=== PATIENT | female | born 1945 | race Caucasian/White ===

== ENCOUNTER 2019-11-14 00:06 | Day surgery (SDC) | payer MEDICARE, OTHER, SELFPAY ==
[2019-11-12 10:10] VITALS: BMI 24.2
[2019-11-14] MEDS: LACTATED RINGERS 1,000 ML 150 ML IV CONT (10:53)
[2019-11-14 10:56] VITALS: BP 149/87; PULSE 59; RESP 16; TEMP 37; O2SAT 99; BMI 23.4
--- NOTE | 2019-11-14 11:35 | PM.HPGS ---
History of Present Illness History of Present Illness Consent: Risks, benefits, and alternatives have been discussed and questions answered. Patient agrees to proceed with procedure. Chief complaint: Neoplasm Screening Narrative: Pao Diaz is a 74 year old female here for screening colonoscopy, last one 10 years ago. Review of Systems Constitutional: Constitutional: Denies headache(s) and Denies weakness Eyes: Eyes: Denies blurry vision ENT: Reports Normal hearing present, Denies headache(s) and Denies neck pain Cardiovascular: Cardiovascular: Denies chest pain and Denies dyspnea Respiratory: Respiratory: Denies dyspnea Gastrointestinal: Gastrointestinal: Reports no additional gastrointestinal complaints Genitourinary: Genitourinary: Denies dysuria Musculoskeletal: Musculoskeletal: Denies neck pain Integumentary/Breasts: Skin/Breast: Denies dry skin Neurologic: Reports Normal hearing present, Denies headache(s) and Denies weakness Psychiatric: Psychiatric: Denies anxiety Endocrine: Endocrine: Denies change in body appearance Hematologic/Lymphatic: Hematologic/Lymphatic: Denies easy bleeding Allergic/Immunologic: Allergic/Immunologic: Denies urticaria PMFSH Past Medical History Medical History (Updated 11/14/19 @ 11:35 by Roman Mathur MD) Anxiety Depression GERD (gastroesophageal reflux disease) Hyperlipidemia Hypertension Family History Family History (Updated 10/11/16 @ 11:23 by DOCTOR UNKNOWN) Mother Hypertension Family history of arthritis Social History Social History Smoking status: Current every day smoker Alcohol intake: current Meds Home Medications and Allergies Home Medications Medication Instructions Recorded Confirmed Type aspirin [Aspir-81] 81 mg PO DAILY 11/12/19 11/12/19 History atenolol 25 mg PO QAM 11/12/19 11/12/19 History escitalopram oxalate 20 mg PO QAM 11/12/19 11/12/19 History estradiol 0.5 mg PO QAM 11/12/19 11/12/19 History lorazepam 0.5 mg PO DIRECTED 11/12/19 11/12/19 History pantoprazole 40 mg PO DAILY 11/12/19 11/12/19 History simvastatin 10 mg PO DAILY 11/12/19 11/12/19 History telmisartan 20 mg PO QAM 11/12/19 11/12/19 History Allergies Allergy/AdvReac Type Severity Reaction Status Date / Time ampicillin AdvReac Unknown c-diff Verified 11/14/19 10:41 Vital Signs Vital Signs - 24 hr 11/14/19 10:56 Temperature 98.6 F Pulse Rate 59 L Respiratory Rate 16 Blood Pressure 149/87 H Pulse Oximetry 99 Exam Const: General: comfortable and no acute distress HENMT: General nose exam: Normal nares present Eyes: General: appearance normal, both eyes and all related structures Neck: Neck: no JVD Resp: Auscultation: clear to auscultation bilaterally Cardio: Rate: regular rate Rhythm: regular rhythm GI: Inspection: non-distended GI Palp: Yes Soft to palpation Skin: General skin exam: normal color Neuro: General: gait normal Speech: normal speech Extrem: General: normal to inspection Psych: Mental Status: mental status grossly normal
--- NOTE | 2019-11-14 11:36 | P.PNAN_ITS ---
Anes - Initial Pre Proc Eval Procedure: Operation Date: 11/14/19 11:30 Proposed Procedures p Screening Colonoscopy - Robbie Linda MD Date/Time: 11/14/19 11:36 Surgeon: Robbie Linda MD Pre Op Diagnosis: Neoplasm Screening Patient Data Age: 74 Gender: F Height: 5 ft 3 in Weight: 60 kg Last Vital Signs Temp 98.6 F 11/14/19 10:56 Pulse 59 L 11/14/19 10:56 Resp 16 11/14/19 10:56 BP 149/87 H 11/14/19 10:56 Pulse Ox 99 11/14/19 10:56 Allergies Allergy/AdvReac Type Severity Reaction Status Date / Time ampicillin AdvReac Unknown c-diff Verified 11/14/19 10:41 Home Medications Medication Instructions Recorded Confirmed Type aspirin [Aspir-81] 81 mg PO DAILY 11/12/19 11/12/19 History atenolol 25 mg PO QAM 11/12/19 11/12/19 History escitalopram oxalate 20 mg PO QAM 11/12/19 11/12/19 History estradiol 0.5 mg PO QAM 11/12/19 11/12/19 History lorazepam 0.5 mg PO DIRECTED 11/12/19 11/12/19 History pantoprazole 40 mg PO DAILY 11/12/19 11/12/19 History simvastatin 10 mg PO DAILY 11/12/19 11/12/19 History telmisartan 20 mg PO QAM 11/12/19 11/12/19 History Patient hx anesthesia problems: none Family hx anesthesia problems: none [facility] Past Medical History Medical History (Updated 11/14/19 @ 11:35 by Roman Mathur MD) Anxiety Depression GERD (gastroesophageal reflux disease) Hyperlipidemia Hypertension Family History Family History (Updated 10/11/16 @ 11:23 by DOCTOR UNKNOWN) Mother Hypertension Family history of arthritis Social History Social History Smoking status: Current every day smoker Alcohol intake: current Anes - Eval Final PreProcedure Day of Procedure 11/14/19 11:36 Patient weight: normal Heart: regular rate and rhythm Lungs: clear to auscultation Airway: Mallampati scale class II Neurological: alert and oriented Last oral intake: >/= 8 hours ASA classification: III Emergent: no Anesthetic plan: proceed Anesthesia type and monitoring: general GIVS and standard monitoring Informed Consent: The patient's anesthetic plan and its attendant risks and benefits were discussed with the patient/family/POA. Questions were solicited and answers provided to the satisfaction of the patient/family/POA.
[2019-11-14 12:37] VITALS: BP 100/62; PULSE 54; RESP 20; O2SAT 93
[2019-11-14 12:47] VITALS: BP 117/72; PULSE 50; RESP 15; O2SAT 96
[2019-11-14 12:57] VITALS: BP 127/82; PULSE 61; RESP 15; O2SAT 100
== END 2019-11-14 13:13 | disposition home or self-care (01) ==
PROVIDERS: PCP Internal Medicine; Visit Provider Internal Medicine Gastroenterology
PROC: 0DJD8ZZ Inspection of Lower Intestinal Tract, Via Natural or Artificial Opening Endoscopic (ICD-10-PCS; CPT 45378; principal; 2019-11-14 11:30)
DX: Z12.11 Encounter for screening for malignant neoplasm of colon (principal); K63.5 Polyp of colon; K64.8 Other hemorrhoids; I10 Essential (primary) hypertension; E78.5 Hyperlipidemia, unspecified; K21.9 Gastro-esophageal reflux disease without esophagitis; F41.8 Other specified anxiety disorders; Z79.82 Long term (current) use of aspirin; F17.210 Nicotine dependence, cigarettes, uncomplicated
CPT/HCPCS: 45385; 45381; 88305; J2704; J7120

== ENCOUNTER 2020-03-17 10:42 | Outpatient (CLI) | payer MEDICARE, SELFPAY ==
[2020-03-17 10:52] LABS: Basophils Absolute Auto 0.04 K/mm3 (0.00-0.10); Basophils Percent Auto 0.7 % (0.0-1.0); Eosinophils Absolute Auto 0.12 K/mm3 (0.02-0.50); Hematocrit 39.3 % (35.0-42.0); Hemoglobin 13.5 g/dL (11.7-13.8); Immature Granulocyte Absolute 0.01 K/mm3 (0.00-0.00); Immature Granulocyte Percent A 0.2 % (0.0-0.0); Lymphocytes Absolute Auto 1.25 K/mm3 (1.10-4.50); Lymphocytes Percent Auto 21.3 % (18.0-42.0); Mean Corpuscular HGB Conc 34.4 g/dL (32.0-36.0); Mean Corpuscular Hemoglobin 36.8 pg (27.0-31.0); Mean Corpuscular Volume 107.1 fL (78.0-102.0); Mean Platelet Volume 10.3 fl (9.2-11.8); Monocytes Absolute Auto 0.36 K/mm3 (0.10-0.90); Monocytes Percent Auto 6.1 % (2.0-11.0); Neutrophils Absolute Auto 4.1 K/mm3 (1.7-7.2); Neutrophils Percent Auto 69.7 % (50.0-70.0); Platelet Count Result 211 K/mm3 (150-420); Red Blood Count 3.67 M/mm3 (4.20-5.40); Red Cell Distribution Width 12.3 % (11.6-14.4); White Blood Count 5.9 K/mm3 (4.8-10.8)
[2020-03-17 10:57] LABS: Add Urine Microscopic? NO; Appearance Urine Clear (Clear); Bilirubin Urine Negative (Negative); Blood Urine Negative (Negative); Color Urine Yellow (Yellow); Glucose Urine UA Negative (Negative); Ketones Urine Negative (Negative); Leukocyte Esterase Ur Negative (Negative); Nitrate Urine Negative (Negative); Protein Urine Negative (Negative); Specific Grav Ur 1.015 (1.010-1.020); Urobilinogen Urine 0.2 mg/dL (0.2-1.0); pH Urine 7.5 (5.0-8.0)
[2020-03-17 11:44] LABS: Alanine Aminotransferase 58 U/L (14-59); Alkaline Phosphatase 103 U/L (46-116); Aspartate Amino Transferase 99 U/L (15-37); Bilirubin,Total 0.5 mg/dL (0.00-1.00); Blood Urea Nitrogen 10 mg/dL (7-18); Calcium 9.7 mg/dL (8.5-10.1); Carbon Dioxide 32 mmol/L (21-32); Chloride 100 mmol/L (98-108); Cholesterol 186 mg/dL (0-200); Estimated Glomerular Filt Rate > 60; GGT 392 U/L (5-55); Glucose 100 mg/dL (70-99); HDL Direct 65 mg/dL (40-60); LDL Cholesterol Calculated 99 mg/dL (<130); Osmolality Calculated 287 mOsm/kg (285-295); Sodium 139 mmol/L (136-145); Thyroid Stimulating Hormone 1.52 uIU/mL (0.36-3.74); Total Protein 7.4 g/dL (6.4-8.2); Triglycerides 111 mg/dL (0-150)
== END 2020-03-17 10:43 | disposition home or self-care (01) ==
LOC: CHSLAB 10:44
PROVIDERS: PCP Internal Medicine; Visit Provider Internal Medicine
DX: E78.5 Hyperlipidemia, unspecified (principal); I10 Essential (primary) hypertension; R94.5 Abnormal results of liver function studies
CPT/HCPCS: 36415; 80053; 80061; 81003; 82977; 84443; 85025

== ENCOUNTER 2020-04-14 12:32 | Outpatient (CLI) | payer MEDICARE, OTHER, SELFPAY ==
--- NOTE | ~2020-04-14 | MM_ITS ---
EXAMINATION: MM screening [facility] BI w cesia HISTORY: Screening mammogram, family history of breast cancer in her mother. TECHNIQUE: Craniocaudal and mediolateral oblique 3-D tomosynthesis images were obtained and synthetic 2-D images were generated. CAD analysis was submitted and interpreted. COMPARISON: 05/09/2018, 01/03/2017, 11/26/2015 BREAST PARENCHYMAL COMPOSITION: There are scattered areas of fibroglandular density. FINDINGS: There is a stable asymmetry in the anterior/middle third of the inner right breast on the c raniocaudal view, considered benign given the lack of interval telephone exchange operator multiple examinations. The re is no evidence of suspicious mass, calcification, or architectural distortion to suggest malignanc y in either breast. There has been no suspicious interval change. IMPRESSION: 1. No mammographic evidence of malignancy. 2. Recommend routine screening mammography in one year. BI-RADS Category 2: Benign finding(s). Reviewed, dictated and finalized at location A.
== END 2020-04-14 12:33 | disposition home or self-care (01) ==
LOC: CHSIMG 12:35
PROVIDERS: PCP Internal Medicine; Visit Provider Internal Medicine
DX: Z12.31 Encounter for screening mammogram for malignant neoplasm of breast (principal)
CPT/HCPCS: 77063; 77067

== ENCOUNTER 2020-08-06 06:14 | Outpatient (CLI) | payer MEDICARE, SELFPAY ==
[2020-08-07 15:20] LABS: SARS-CoV-2 RNA PCR Positive
== END 2020-08-06 06:15 | disposition home or self-care (01) ==
LOC: CHSLAB 06:16
PROVIDERS: PCP Internal Medicine; Visit Provider Internal Medicine
DX: U07.1 COVID-19 (principal)
CPT/HCPCS: 87635; C9803; U0003

== ENCOUNTER 2020-09-17 11:33 | Outpatient (CLI) | payer MEDICARE, SELFPAY ==
[2020-09-17 11:48] LABS: Add Urine Microscopic? NO; Appearance Urine Clear (Clear); Bilirubin Urine Negative (Negative); Blood Urine Negative (Negative); Color Urine Yellow (Yellow); Glucose Urine UA Negative (Negative); Ketones Urine Negative (Negative); Leukocyte Esterase Ur Negative (Negative); Nitrate Urine Negative (Negative); Protein Urine Negative (Negative); Specific Grav Ur <= 1.005 (1.010-1.020); Urobilinogen Urine 0.2 mg/dL (0.2-1.0); pH Urine 6.5 (5.0-8.0)
[2020-09-17 11:50] LABS: Basophils Absolute Auto 0.04 K/mm3 (0.00-0.10); Basophils Percent Auto 0.5 % (0.0-1.0); Eosinophils Absolute Auto 0.21 K/mm3 (0.02-0.50); Eosinophils Percent Auto 2.6 % (1.0-6.0); Hematocrit 37.3 % (35.0-42.0); Immature Granulocyte Absolute 0.02 K/mm3 (0.00-0.00); Immature Granulocyte Percent A 0.2 % (0.0-0.0); Lymphocytes Absolute Auto 1.81 K/mm3 (1.10-4.50); Lymphocytes Percent Auto 22.2 % (18.0-42.0); Mean Corpuscular HGB Conc 34.9 g/dL (32.0-36.0); Mean Corpuscular Hemoglobin 37.2 pg (27.0-31.0); Mean Corpuscular Volume 106.9 fL (78.0-102.0); Mean Platelet Volume 10.5 fl (9.2-11.8); Monocytes Absolute Auto 0.41 K/mm3 (0.10-0.90); Neutrophils Absolute Auto 5.7 K/mm3 (1.7-7.2); Neutrophils Percent Auto 69.5 % (50.0-70.0); Platelet Count Result 187 K/mm3 (150-420); Red Blood Count 3.49 M/mm3 (4.20-5.40); Red Cell Distribution Width 13.4 % (11.6-14.4); White Blood Count 8.2 K/mm3 (4.8-10.8)
[2020-09-17 12:29] LABS: Alanine Aminotransferase 22 U/L (14-59); Albumin Level 3.9 g/dL (3.4-5.0); Alkaline Phosphatase 71 U/L (46-116); Anion Gap 9 mmol/L (8-16); Aspartate Amino Transferase 37 U/L (15-37); Bilirubin,Total 0.7 mg/dL (0.00-1.00); Blood Urea Nitrogen 11 mg/dL (7-18); Calcium 8.1 mg/dL (8.5-10.1); Carbon Dioxide 27 mmol/L (21-32); Chloride 102 mmol/L (98-108); Cholesterol 177 mg/dL (0-200); Estimated Glomerular Filt Rate > 60; Glucose 86 mg/dL (70-99); HDL Direct 72 mg/dL (40-60); LDL Cholesterol Calculated 86 mg/dL (<130); Osmolality Calculated 284 mOsm/kg (285-295); Sodium 138 mmol/L (136-145); Total Protein 7.3 g/dL (6.4-8.2); Triglycerides 96 mg/dL (0-150)
== END 2020-09-17 11:34 | disposition home or self-care (01) ==
LOC: CHSLAB 11:35
PROVIDERS: PCP Internal Medicine; Visit Provider Internal Medicine
DX: E78.2 Mixed hyperlipidemia (principal); I10 Essential (primary) hypertension
CPT/HCPCS: 36415; 80053; 80061; 81003; 85025

== ENCOUNTER 2020-12-08 10:17 | Outpatient (CLI) | payer MEDICARE, OTHER, SELFPAY ==
--- NOTE | ~2020-12-08 | XR_ITS ---
EXAMINATION: XR knee RT 3V DATE: 12/08/2020 10:48 INDICATION: Right knee pain. TECHNIQUE: 3 views of right knee on 4 radiographs were obtained. COMPARISON: None. FINDINGS: Bone alignment is normal. No fracture. There is mild tricompartmental osteoarthritis. There is a small knee joint effusion. IMPRESSION: 1. Mild right knee osteoarthritis. 2. Small right knee joint effusion. Reviewed, dictated and finalized at location A. WRITER LETTERER OR PAINTER
[2020-12-08 10:34] LABS: Basophils Absolute Auto 0.03 K/mm3 (0.00-0.10); Basophils Percent Auto 0.5 % (0.0-1.0); Eosinophils Absolute Auto 0.15 K/mm3 (0.02-0.50); Eosinophils Percent Auto 2.3 % (1.0-6.0); Hematocrit 39.5 % (35.0-42.0); Hemoglobin 13.4 g/dL (11.7-13.8); Immature Granulocyte Absolute 0.02 K/mm3 (0.00-0.00); Immature Granulocyte Percent A 0.3 % (0.0-0.0); Lymphocytes Absolute Auto 0.91 K/mm3 (1.10-4.50); Lymphocytes Percent Auto 13.7 % (18.0-42.0); Mean Corpuscular HGB Conc 33.9 g/dL (32.0-36.0); Mean Corpuscular Hemoglobin 35.7 pg (27.0-31.0); Mean Corpuscular Volume 105.3 fL (78.0-102.0); Mean Platelet Volume 10.5 fl (9.2-11.8); Monocytes Absolute Auto 0.39 K/mm3 (0.10-0.90); Monocytes Percent Auto 5.9 % (2.0-11.0); Neutrophils Absolute Auto 5.2 K/mm3 (1.7-7.2); Neutrophils Percent Auto 77.3 % (50.0-70.0); Platelet Count Result 178 K/mm3 (150-420); Red Blood Count 3.75 M/mm3 (4.20-5.40); Red Cell Distribution Width 11.7 % (11.6-14.4); White Blood Count 6.7 K/mm3 (4.8-10.8)
[2020-12-08 11:48] LABS: Alanine Aminotransferase 43 U/L (14-59); Albumin Level 4.1 g/dL (3.4-5.0); Alkaline Phosphatase 87 U/L (46-116); Anion Gap 11 mmol/L (8-16); Aspartate Amino Transferase 84 U/L (15-37); Bilirubin,Total 0.6 mg/dL (0.00-1.00); Blood Urea Nitrogen 14 mg/dL (7-18); CRP 1.3 mg/dL (0.0-0.9); Calcium 9.3 mg/dL (8.5-10.1); Carbon Dioxide 27 mmol/L (21-32); Chloride 101 mmol/L (98-108); Estimated Glomerular Filt Rate > 60; Glucose 90 mg/dL (70-99); Osmolality Calculated 288 mOsm/kg (285-295); Potassium 4.5 mmol/L (3.5-5.1); Sodium 139 mmol/L (136-145); Total Protein 7.7 g/dL (6.4-8.2); Uric Acid 3.1 mg/dL (2.6-6.0)
== END 2020-12-08 10:18 | disposition home or self-care (01) ==
LOC: CHSLAB 10:20
PROVIDERS: PCP Internal Medicine; Visit Provider Internal Medicine
DX: R63.4 Abnormal weight loss (principal); M25.561 Pain in right knee
CPT/HCPCS: 36415; 73562; 80053; 84550; 85025; 86140

== ENCOUNTER 2020-12-16 09:24 | Outpatient (CLI) | payer MEDICARE, OTHER, SELFPAY ==
--- NOTE | ~2020-12-16 | CT_ITS ---
EXAMINATION: CT lung screening EXAM DATE: 12/16/2020 09:44 INDICATION: Personal history of tobacco dependence. TECHNIQUE: Spiral low dose CT of the chest without contrast. Axial, coronal and sagittal images were reviewed. The dose-length product (DLP) for this examination was 63.82 mGy-cm. The exposure was ta ilored according to patient size (auto mA exposure control), and iterative reconstruction (ASIR) was used as additional dose reduction technique. Comparison is made to prior examination from 03/11/2019. FINDINGS: The ascending aorta measures 5.0 cm in AP dimension (in 2019 measurement was 4.8 cm). The l ungs are clear. Tracheobronchial tree is patent. There is mild bronchiectasis. There is no mediasti nal, hilar or axillary lymphadenopathy. There are no pleural or pericardial effusions. There is n o pneumothorax. Heart normal in size. There is mild coronary arterial calcification, arterial scl erosis. Upper abdomen is unremarkable. There is mild to moderate thoracic spondylosis without osteo blastic or osteolytic lesions identified. Possible nondisplaced sternal fracture unchanged. IMPRESSION: 1. Lung-RADS category 1S, negative (<1%chance of malignancy); recommend continued LDCT screening in 1 year. 2. Mild interval increase in size of ascending aortic aneurysm, now 5.0 cm. Reviewed, dictated and finalized at location A. IMPRESSION: 1. Lung-RADS category 1S, negative (<1%chance of malignancy); recommend contin ued LDCT screening in 1 year. 2. Mild interval increase in size of ascending aortic aneurysm, now 5.0 cm.
== END 2020-12-16 09:25 | disposition home or self-care (01) ==
LOC: CHSIMG 09:27
PROVIDERS: PCP Internal Medicine; Visit Provider Internal Medicine
DX: Z12.2 Encounter for screening for malignant neoplasm of respiratory organs (principal); Z87.891 Personal history of nicotine dependence
CPT/HCPCS: 71271

== ENCOUNTER 2021-01-23 07:56 | Outpatient (CLI) | payer MEDICARE, OTHER, SELFPAY ==
[2021-01-23 09:49] LABS: SARS-CoV-2 RNA PCR Negative (Negative)
== END 2021-01-23 07:57 | disposition home or self-care (01) ==
PROVIDERS: PCP Internal Medicine; Visit Provider Internal Medicine Gastroenterology
DX: Z09 Encounter for follow-up examination after completed treatment for conditions other than malignant neoplasm (principal); Z86.16 Personal history of COVID-19
CPT/HCPCS: C9803; U0003; U0005

== ENCOUNTER 2021-01-26 02:49 | Day surgery (SDC) | payer MEDICARE, OTHER, SELFPAY ==
[2021-01-14 13:05] VITALS: BMI 21.8
[2021-01-26 10:25] VITALS: BP 114/72; PULSE 77; RESP 18; TEMP 36.9; O2SAT 99; BMI 21.4
[2021-01-26] MEDS: LACTATED RINGERS 1,000 ML 150 ML IV CONT (10:37)
--- NOTE | 2021-01-26 10:58 | P.PNAN_ITS ---
Anes - Initial Pre Proc Eval Procedure: Operation Date: 01/26/21 11:15 Proposed Procedures p Screening Colonoscopy - Robbie Linda MD Date/Time: 01/26/21 10:58 Surgeon: Robbie Linda MD Pre Op Diagnosis: hx of colon polyps Patient Data Age: 75 Gender: F Height: 5 ft 3 in Weight: 55 kg Last Vital Signs Temp 98.4 F 01/26/21 10:25 Pulse 77 01/26/21 10:25 Resp 18 01/26/21 10:25 BP 114/72 01/26/21 10:25 Pulse Ox 99 01/26/21 10:25 Allergies Allergy/AdvReac Type Severity Reaction Status Date / Time ampicillin AdvReac Unknown c-diff Verified 01/26/21 10:23 Home Medications Medication Instructions Recorded Confirmed Type aspirin [Aspir-81] 81 mg PO DAILY 11/12/19 01/14/21 History atenolol 25 mg PO QAM 11/12/19 01/14/21 History escitalopram oxalate 20 mg PO QAM 11/12/19 01/14/21 History estradiol 0.5 mg PO QAM 11/12/19 01/14/21 History lorazepam 0.5 mg PO DIRECTED 11/12/19 01/14/21 History pantoprazole 40 mg PO DAILY 11/12/19 01/14/21 History simvastatin 10 mg PO DAILY 11/12/19 01/14/21 History telmisartan 40 mg PO QAM 11/12/19 01/14/21 History Patient hx anesthesia problems: none Family hx anesthesia problems: none [facility] Past Medical History Medical History (Updated 11/14/19 @ 11:35 by Roman Mathur MD) Anxiety Depression GERD (gastroesophageal reflux disease) Hyperlipidemia Hypertension Family History Family History (Updated 10/11/16 @ 11:23 by DOCTOR UNKNOWN) Mother Hypertension Family history of arthritis Social History Social History Smoking status: Current every day smoker Tobacco type: cigarettes Alcohol intake: current Drinks per week: 3 Substance use: never Substance use type: does not use Living arrangements: with family Gender identity (if verbalized by the patient): Female Spiritual care concerns: No Anes - Eval Final PreProcedure Day of Procedure 01/26/21 10:58 Patient weight: normal Heart: regular rate and rhythm Lungs: clear to auscultation Airway: Mallampati scale Neurological: alert and oriented Last oral intake: >/= 8 hours ASA classification: III Emergent: no Anesthetic plan: proceed Anesthesia type and monitoring: general GIVS and standard monitoring Informed Consent: The patient's anesthetic plan and its attendant risks and benefits were discussed with the patient/family/POA. Questions were solicited and answers provided to the satisfaction of the patient/family/POA.
--- NOTE | 2021-01-26 11:01 | PM.HPGS ---
History of Present Illness History of Present Illness Consent: Risks, benefits, and alternatives have been discussed and questions answered. Patient agrees to proceed with procedure. Chief complaint: hx of colon polyps Narrative: Pao Diaz is a 75 year old female with large piece-meal polypectomy 1 year ago, here for colonoscopy Review of Systems Constitutional: Constitutional: Denies headache(s) and Denies weakness Eyes: Eyes: Denies blurry vision ENT: Reports Normal hearing present, Denies headache(s) and Denies neck pain Cardiovascular: Cardiovascular: Denies chest pain and Denies dyspnea Respiratory: Respiratory: Denies dyspnea Gastrointestinal: Gastrointestinal: Reports no additional gastrointestinal complaints Genitourinary: Genitourinary: Denies dysuria Musculoskeletal: Musculoskeletal: Denies neck pain Integumentary/Breasts: Skin/Breast: Denies dry skin Neurologic: Reports Normal hearing present, Denies headache(s) and Denies weakness Psychiatric: Psychiatric: Denies anxiety Endocrine: Endocrine: Denies change in body appearance Hematologic/Lymphatic: Hematologic/Lymphatic: Denies easy bleeding Allergic/Immunologic: Allergic/Immunologic: Denies urticaria PMFSH Past Medical History Medical History (Updated 01/26/21 @ 11:01 by Robbie Linda MD) Adenomatous colon polyp Anxiety Depression GERD (gastroesophageal reflux disease) Hyperlipidemia Hypertension Family History Family History (Updated 10/11/16 @ 11:23 by DOCTOR UNKNOWN) Mother Hypertension Family history of arthritis Social History Social History Smoking status: Current every day smoker Tobacco type: cigarettes Alcohol intake: current Drinks per week: 3 Substance use: never Substance use type: does not use Living arrangements: with family Gender identity (if verbalized by the patient): Female Spiritual care concerns: No Meds Home Medications and Allergies Home Medications Medication Instructions Recorded Confirmed Type aspirin [Aspir-81] 81 mg PO DAILY 11/12/19 01/14/21 History atenolol 25 mg PO QAM 11/12/19 01/14/21 History escitalopram oxalate 20 mg PO QAM 11/12/19 01/14/21 History estradiol 0.5 mg PO QAM 11/12/19 01/14/21 History lorazepam 0.5 mg PO DIRECTED 11/12/19 01/14/21 History pantoprazole 40 mg PO DAILY 11/12/19 01/14/21 History simvastatin 10 mg PO DAILY 11/12/19 01/14/21 History telmisartan 40 mg PO QAM 11/12/19 01/14/21 History Allergies Allergy/AdvReac Type Severity Reaction Status Date / Time ampicillin AdvReac Unknown c-diff Verified 01/26/21 10:23 Vital Signs Vital Signs - 24 hr 01/26/21 10:25 Temperature 98.4 F Pulse Rate 77 Respiratory Rate 18 Blood Pressure 114/72 Pulse Oximetry 99 Exam Const: General: comfortable and no acute distress HENMT: General nose exam: Normal nares present Eyes: General: appearance normal, both eyes and all related structures Neck: Neck: no JVD Resp: Auscultation: clear to auscultation bilaterally Cardio: Rate: regular rate Rhythm: regular rhythm GI: Inspection: non-distended GI Palp: Yes Soft to palpation Skin: General skin exam: normal color Neuro: General: gait normal Speech: normal speech Extrem: General: normal to inspection Psych: Mental Status: mental status grossly normal Assessment and Plan Assessment and plan (1) Adenomatous colon polyp: Code(s): D12.6 - Benign neoplasm of colon, unspecified Status: Acute Assessment and Plan: colonoscopy
[2021-01-26 11:29] VITALS: BP 100/66; PULSE 67; RESP 21; O2SAT 100
[2021-01-26 11:39] VITALS: BP 124/79; PULSE 59; RESP 20; O2SAT 100
[2021-01-26 11:49] VITALS: BP 115/70; PULSE 61; RESP 21; O2SAT 100
== END 2021-01-26 12:13 | disposition home or self-care (01) ==
PROVIDERS: PCP Internal Medicine; Visit Provider Internal Medicine Gastroenterology
PROC: 0DJD8ZZ Inspection of Lower Intestinal Tract, Via Natural or Artificial Opening Endoscopic (ICD-10-PCS; CPT 45378; principal; 2021-01-26 11:15)
DX: Z09 Encounter for follow-up examination after completed treatment for conditions other than malignant neoplasm (principal); Z86.010 Personal history of colon polyps; K21.9 Gastro-esophageal reflux disease without esophagitis; E78.5 Hyperlipidemia, unspecified; I10 Essential (primary) hypertension; F17.210 Nicotine dependence, cigarettes, uncomplicated; F41.9 Anxiety disorder, unspecified; F32.9 Major depressive disorder, single episode, unspecified
CPT/HCPCS: 45378; J2704; J7120

== ENCOUNTER 2021-03-10 11:12 | Outpatient (CLI) | payer MEDICARE, OTHER, SELFPAY ==
[2021-03-10 11:35] LABS: Basophils Absolute Auto 0.04 K/mm3 (0.00-0.10); Basophils Percent Auto 0.6 % (0.0-1.0); Eosinophils Absolute Auto 0.13 K/mm3 (0.02-0.50); Eosinophils Percent Auto 1.9 % (1.0-6.0); Hematocrit 39.1 % (35.0-42.0); Hemoglobin 13.5 g/dL (11.7-13.8); Immature Granulocyte Absolute 0.01 K/mm3 (0.00-0.00); Immature Granulocyte Percent A 0.1 % (0.0-0.0); Lymphocytes Absolute Auto 1.65 K/mm3 (1.10-4.50); Lymphocytes Percent Auto 24.2 % (18.0-42.0); Mean Corpuscular HGB Conc 34.5 g/dL (32.0-36.0); Mean Corpuscular Hemoglobin 36.8 pg (27.0-31.0); Mean Corpuscular Volume 106.5 fL (78.0-102.0); Mean Platelet Volume 10.1 fl (9.2-11.8); Monocytes Percent Auto 5.9 % (2.0-11.0); Neutrophils Absolute Auto 4.6 K/mm3 (1.7-7.2); Neutrophils Percent Auto 67.3 % (50.0-70.0); Platelet Count Result 215 K/mm3 (150-420); Red Blood Count 3.67 M/mm3 (4.20-5.40); White Blood Count 6.8 K/mm3 (4.8-10.8)
[2021-03-10 12:25] LABS: Alanine Aminotransferase 39 U/L (14-59); Albumin Level 3.8 g/dL (3.4-5.0); Alkaline Phosphatase 70 U/L (46-116); Anion Gap 10 mmol/L (8-16); Aspartate Amino Transferase 51 U/L (15-37); Bilirubin,Total 0.5 mg/dL (0.00-1.00); Blood Urea Nitrogen 15 mg/dL (7-18); Calcium 8.9 mg/dL (8.5-10.1); Carbon Dioxide 30 mmol/L (21-32); Chloride 101 mmol/L (98-108); Estimated Glomerular Filt Rate 60; Glucose 85 mg/dL (70-99); Osmolality Calculated 291 mOsm/kg (285-295); Potassium 4.3 mmol/L (3.5-5.1); Sodium 141 mmol/L (136-145)
[2021-03-12 22:01] LABS: Hepatitis A Antibody IgM Nonreactive; Hepatitis B Core Antibody Nonreactive (Nonreactive); Hepatitis B Surface Antigen Nonreactive (Nonreactive); Hepatitis C Signal to Cutoff 0.01 ratio (<1.00); Hepatitis C Virus Antibody Nonreactive (Nonreactive)
== END 2021-03-10 11:13 | disposition home or self-care (01) ==
PROVIDERS: PCP Internal Medicine; Visit Provider Internal Medicine
DX: R94.5 Abnormal results of liver function studies (principal)
CPT/HCPCS: 36415; 80053; 80074; 85025

== ENCOUNTER 2021-04-19 08:52 | Outpatient (CLI) | payer MEDICARE, OTHER, SELFPAY ==
--- NOTE | ~2021-04-19 | MM_ITS ---
EXAMINATION: MM screening [facility] BI w cesia HISTORY: Screening TECHNIQUE: Craniocaudal and mediolateral oblique 3-D tomosynthesis images were obtained and synthetic 2-D images were generated. CAD analysis was submitted and interpreted. COMPARISON: Comparison to multiple prior studies sequentially, with oldest reviewed study dated 10/29. BREAST PARENCHYMAL COMPOSITION: There are scattered areas of fibroglandular density. FINDINGS: There is no evidence of suspicious mass, calcification, or architectural distortion to sugg est malignancy in either breast. There has been no suspicious interval change. IMPRESSION: 1. No mammographic evidence of malignancy. 2. Recommend routine screening mammography in one year. BI-RADS Category 1: Negative Reviewed, dictated and finalized at location A.
== END 2021-04-19 08:53 | disposition home or self-care (01) ==
LOC: CHSIMG 08:53
PROVIDERS: PCP Internal Medicine; Visit Provider Internal Medicine
DX: Z12.31 Encounter for screening mammogram for malignant neoplasm of breast (principal)
CPT/HCPCS: 77063; 77067

== ENCOUNTER 2021-05-07 01:48 | Day surgery (SDC) | payer MEDICARE, OTHER, SELFPAY ==
[2021-04-23 14:14] VITALS: BMI 21.4
--- NOTE | 2021-05-07 08:29 | WPDANESEPPF ---
Anes - Initial Pre Proc Eval Procedure: Operation Date: 05/07/21 10:30 Proposed Procedures p Esophagogastroduodenoscopy - Robbie Linda MD Date/Time: 05/07/21 08:29 Surgeon: Robbie Linda MD Pre Op Diagnosis: GERD Patient Data Age: 75 Gender: F Height: 1.6 m Weight: 55 kg Allergies Allergy/AdvReac Type Severity Reaction Status Date / Time ampicillin AdvReac Unknown c-diff Verified 05/07/21 09:35 Home Medications Medication Instructions Recorded Confirmed Type aspirin [Aspir-81] 81 mg PO DAILY 11/12/19 04/23/21 History atenolol 25 mg PO QAM 11/12/19 04/23/21 History estradiol 0.5 mg PO QAM 11/12/19 04/23/21 History lorazepam 0.5 mg PO DIRECTED 11/12/19 04/23/21 History pantoprazole 40 mg PO DAILY 11/12/19 04/23/21 History simvastatin 10 mg PO DAILY 11/12/19 04/23/21 History telmisartan 40 mg PO QAM 11/12/19 04/23/21 History Patient hx anesthesia problems: none Family hx anesthesia problems: none PMFSH Past Medical History Medical History (Updated 05/07/21 @ 08:30 by Mack Coates MD) Adenomatous colon polyp Anxiety Aortic aneurysm ascending aorta 5.0 cm 11/2020 Depression GERD (gastroesophageal reflux disease) Hyperlipidemia Hypertension Family History Family History (Updated 10/11/16 @ 11:23 by DOCTOR UNKNOWN) Mother Hypertension Family history of arthritis Social History Social History Years smoked: 14 Smoking status: Current every day smoker Tobacco type: cigarettes Alcohol intake: current Drinks per week: 3 Alcohol use details: WINE Substance use: never Substance use type: does not use Living arrangements: with family Gender identity (if verbalized by the patient): Female Spiritual care concerns: No Anes - Eval Final PreProcedure Day of Procedure 05/07/21 08:29 Patient weight: normal Heart: regular rate and rhythm Lungs: clear to auscultation and normal air movement Airway: Mallampati scale class II Neurological: alert and oriented Last oral intake: >/= 8 hours ASA classification: IV Emergent: no Anesthetic plan: proceed Anesthesia type and monitoring: general GIVS Informed Consent: The patient's anesthetic plan and its attendant risks and benefits were discussed with the patient/family/POA. Questions were solicited and answers provided to the satisfaction of the patient/family/POA.
[2021-05-07 09:37] VITALS: BP 161/96; PULSE 76; RESP 16; TEMP 36.5; O2SAT 98; BMI 21.7
[2021-05-07] MEDS: LACTATED RINGERS 1,000 ML 150 ML IV CONT (09:49)
--- NOTE | 2021-05-07 10:31 | PM.HPGS ---
History of Present Illness History of Present Illness Consent: Risks, benefits, and alternatives have been discussed and questions answered. Patient agrees to proceed with procedure. Chief complaint: GERD Narrative: Pao Diaz is a 75 year old female with epigastric pain and weight loss, using ppi recently, never had EGD. Recent screening colonoscopy, also CT chest (h/o smoking) Review of Systems Constitutional: Constitutional: Denies headache(s) and Denies weakness Eyes: Eyes: Denies blurry vision ENT: Reports Normal hearing present, Denies headache(s) and Denies neck pain Cardiovascular: Cardiovascular: Denies chest pain and Denies dyspnea Respiratory: Respiratory: Denies dyspnea Gastrointestinal: Gastrointestinal: Reports no additional gastrointestinal complaints Genitourinary: Genitourinary: Denies dysuria Musculoskeletal: Musculoskeletal: Denies neck pain Integumentary/Breasts: Skin/Breast: Denies dry skin Neurologic: Reports Normal hearing present, Denies headache(s) and Denies weakness Psychiatric: Psychiatric: Denies anxiety Endocrine: Endocrine: Denies change in body appearance Hematologic/Lymphatic: Hematologic/Lymphatic: Denies easy bleeding Allergic/Immunologic: Allergic/Immunologic: Denies urticaria PMFSH Past Medical History Medical History (Updated 05/07/21 @ 10:33 by Robbie Linda MD) Adenomatous colon polyp Anxiety Aortic aneurysm ascending aorta 5.0 cm 11/2020 Depression Epigastric pain GERD (gastroesophageal reflux disease) Hyperlipidemia Hypertension Weight loss Family History Family History (Updated 10/11/16 @ 11:23 by DOCTOR UNKNOWN) Mother Hypertension Family history of arthritis Social History Social History Years smoked: 14 Smoking status: Current every day smoker Tobacco type: cigarettes Alcohol intake: current Drinks per week: 3 Alcohol use details: WINE Substance use: never Substance use type: does not use Living arrangements: with family Gender identity (if verbalized by the patient): Female Spiritual care concerns: No Meds Home Medications and Allergies Home Medications Medication Instructions Recorded Confirmed Type aspirin [Aspir-81] 81 mg PO DAILY 11/12/19 04/23/21 History atenolol 25 mg PO QAM 11/12/19 04/23/21 History estradiol 0.5 mg PO QAM 11/12/19 04/23/21 History lorazepam 0.5 mg PO DIRECTED 11/12/19 04/23/21 History pantoprazole 40 mg PO DAILY 11/12/19 04/23/21 History simvastatin 10 mg PO DAILY 11/12/19 04/23/21 History telmisartan 40 mg PO QAM 11/12/19 04/23/21 History Allergies Allergy/AdvReac Type Severity Reaction Status Date / Time ampicillin AdvReac Unknown c-diff Verified 05/07/21 09:35 Vital Signs Vital Signs - 24 hr 05/07/21 09:37 Temperature 97.7 F Pulse Rate 76 Respiratory Rate 16 Blood Pressure 161/96 H Pulse Oximetry 98 Exam Const: General: comfortable and no acute distress HENMT: General nose exam: Normal nares present Eyes: General: appearance normal, both eyes and all related structures Neck: Neck: no JVD Resp: Auscultation: clear to auscultation bilaterally Cardio: Rate: regular rate Rhythm: regular rhythm GI: Inspection: non-distended GI Palp: Yes Soft to palpation Skin: General skin exam: normal color Neuro: General: gait normal Speech: normal speech Extrem: General: normal to inspection Psych: Mental Status: mental status grossly normal Assessment and Plan Assessment and plan (1) Epigastric pain: Code(s): R10.13 - Epigastric pain Status: Acute Assessment and Plan: egd with bx (2) Weight loss: Code(s): R63.4 - Abnormal weight loss Status: Acute
[2021-05-07] MEDS: BENZOCAINE (*SP) 60 ML SPRAY CAN (HURRICAINE) 1 SPRAY MUCOUS MEM (10:34)
[2021-05-07 10:47] VITALS: BP 122/80; PULSE 70; RESP 15; O2SAT 96
[2021-05-07 10:57] VITALS: BP 144/90; PULSE 61; RESP 16; O2SAT 95
[2021-05-07 11:07] VITALS: BP 159/97; PULSE 60; RESP 16; O2SAT 96
== END 2021-05-07 11:23 | disposition home or self-care (01) ==
PROVIDERS: PCP Internal Medicine; Visit Provider Internal Medicine Gastroenterology
PROC: 0DJ08ZZ Inspection of Upper Intestinal Tract, Via Natural or Artificial Opening Endoscopic (ICD-10-PCS; CPT 43235; principal; 2021-05-07 10:30)
DX: R10.13 Epigastric pain (principal); R63.4 Abnormal weight loss; K21.9 Gastro-esophageal reflux disease without esophagitis; I71.4 Abdominal aortic aneurysm, without rupture; F41.8 Other specified anxiety disorders; E78.5 Hyperlipidemia, unspecified; F17.210 Nicotine dependence, cigarettes, uncomplicated; Z79.82 Long term (current) use of aspirin; K29.50 Unspecified chronic gastritis without bleeding; I10 Essential (primary) hypertension
CPT/HCPCS: 43239; 88305; J2704; J7120

== ENCOUNTER 2021-05-19 09:47 | Outpatient (CLI) | payer MEDICARE, OTHER, SELFPAY ==
--- NOTE | ~2021-05-19 | US_ITS ---
US abdomen complete EXAMINATION: US Abdomen Complete INDICATION: Abnormal weight loss. PROCEDURE: Realtime High Resolution abdomen ultrasound. COMPARISON: No prior studies for comparison FINDINGS: There are small gallbladder polyps. No definite gallstones. Common bile duct measures 7 mm . Liver echotexture within normal limits without focal mass. Pancreas within normal limits. Pancreati c tail is obscured by bowel gas. Spleen is unremarkeable. Renal echotexture is within normal limits bilaterally without hydronephrosis, contour deforming mass or renal stone. There is a 12 mm right cori al cyst. Right kidney measures 9.9 cm. Left kidney measures 9.5 cm. Visualized aspects of the aorta and IVC are within normal limits. Portal vein is patent. No sonograph ic Johnson's sign indicated by the technologist. IMPRESSION: 1: Gallbladder polyps. Reviewed, dictated and finalized at location A. IMPRESSION: 1: Gallbladder polyps.
== END 2021-05-19 09:48 | disposition home or self-care (01) ==
LOC: CHSIMG 09:49
PROVIDERS: PCP Internal Medicine; Visit Provider Internal Medicine Gastroenterology
DX: R63.4 Abnormal weight loss (principal); R10.13 Epigastric pain
CPT/HCPCS: 76700

== ENCOUNTER 2021-07-12 10:48 | Outpatient (CLI) | payer MEDICARE, OTHER, SELFPAY ==
--- NOTE | ~2021-07-12 | DEXA_ITS ---
Bone Density Report Name: Pao Diaz Age: 75 Sex: Female Ethnicity: White Date of : 1945 Indication: postmenopausal; screening for osteoporosis; hysterectomy; Referring Provider: Jovanni Villanueva Study: Bone densitometry was performed. Exam Date: July 12, 2021 Accession number: [id number] Bone Density: Region BMD T-score Z-score Classification AP Spine(L1-L4) 1.298 2.3 4.6 Normal Femoral Neck (Left) 0.783 -0.6 1.4 Normal Total Hip (Left) 0.954 0.1 1.8 Normal Femoral Neck (Right) 0.784 -0.6 1.4 Normal Total Hip (Right) 0.981 0.3 2.0 Normal Total Hip Mean 0.968 0.2 1.9 Normal World Health Organization criteria for BMD impression classify patients as: Normal (T-score at or above -1.0), Osteopenia (T-score between -1.0 and -2.5), or Osteoporosis (T-score at or below -2.5). 10-year Fracture Risk: FRAX not reported because: All T-scores for Spine Total, Hip Total, Femoral Neck at or above -1.0 Previous Exams: Region Exam Age BMD T-score BMD Change BMD Change Date g/cm2 vs Baseline vs Previous AP Spine(L1-L4) 07/12/2021 75 1.298 2.3 0.131(11.2%)# 0.131(11.2%)# 10/05/2009 63 1.167 1.1 Total Hip(Left) 07/12/2021 75 0.954 0.1 -0.024(-2.4%)# -0.024(-2.4%)# 10/05/2009 63 0.978 0.3 Total Hip(Right) 07/12/2021 75 0.981 0.3 -0.027(-2.7%)# -0.027(-2.7%)# 10/05/2009 63 1.008 0.5 *Denotes significance at 95% confidence level, LSC for AP Spine = 0.022 g/cm2, LSC for Total Hip = 0.027 g/cm2 # Denotes dissimilar scan types or analysis methods Clinical Information Provided by Patient: Smokes Has used the following medications: Vitamin D Has the following medical conditions: Hysterectomy Patient maximum height was 63 No regular weight bearing exercise Drinks caffeinated beverages Onset of menses at age 14 Number of children 0 Impression: The patient has normal bone mass. The patient has risk factors, including: smoking. No significant bone loss was observed. Discussion: BONE DENSITY IS ABOVE THE MINIMUM DESIRABLE LEVEL AT ALL SKELETAL SITES TESTED. This patient?s bone mineral density is above the minimum desirable level (T-score -1.0 or better) at all sites measured. The patient should follow a healthful lifestyle (good nutrition with adequate calcium and vitamin D, and appropriate weight-bearing exercise). Follow-Up: Consider repeating this study in 5 years or sooner if there is some new cli
== END 2021-07-12 10:49 | disposition home or self-care (01) ==
LOC: CHSIMG 10:49
PROVIDERS: PCP Internal Medicine; Visit Provider Internal Medicine
DX: M81.0 Age-related osteoporosis without current pathological fracture (principal)
CPT/HCPCS: 77080

== ENCOUNTER 2021-09-08 10:59 | Outpatient (CLI) | payer MEDICARE, SELFPAY ==
[2021-09-08 11:20] LABS: Basophils Absolute Auto 0.05 K/mm3 (0.00-0.10); Basophils Percent Auto 0.7 % (0.0-1.0); Eosinophils Absolute Auto 0.07 K/mm3 (0.02-0.50); Eosinophils Percent Auto 0.9 % (1.0-6.0); Hematocrit 41.2 % (35.0-42.0); Hemoglobin 13.9 g/dL (11.7-13.8); Immature Granulocyte Absolute 0.03 K/mm3 (0.00-0.00); Immature Granulocyte Percent A 0.4 % (0.0-0.0); Lymphocytes Percent Auto 26.2 % (18.0-42.0); Mean Corpuscular HGB Conc 33.7 g/dL (32.0-36.0); Mean Corpuscular Hemoglobin 35.9 pg (27.0-31.0); Mean Corpuscular Volume 106.5 fL (78.0-102.0); Mean Platelet Volume 10.2 fl (9.2-11.8); Monocytes Absolute Auto 0.43 K/mm3 (0.10-0.90); Monocytes Percent Auto 5.6 % (2.0-11.0); Neutrophils Percent Auto 66.2 % (50.0-70.0); Platelet Count Result 224 K/mm3 (150-420); Red Blood Count 3.87 M/mm3 (4.20-5.40); Red Cell Distribution Width 12.3 % (11.6-14.4); White Blood Count 7.6 K/mm3 (4.8-10.8)
[2021-09-08 11:24] LABS: Add Urine Microscopic? NO; Appearance Urine Clear (Clear); Bilirubin Urine Negative (Negative); Blood Urine Negative (Negative); Color Urine Light Yellow (Yellow); Glucose Urine UA Negative (Negative); Ketones Urine Negative (Negative); Leukocyte Esterase Ur Negative (Negative); Nitrate Urine Negative (Negative); Protein Urine Negative (Negative); Specific Grav Ur 1.025 (1.010-1.020); Urobilinogen Urine 0.2 mg/dL (0.2-1.0)
[2021-09-08 12:02] LABS: Alanine Aminotransferase 29 U/L (14-59); Albumin Level 3.8 g/dL (3.4-5.0); Alkaline Phosphatase 67 U/L (46-116); Anion Gap 11 mmol/L (8-16); Aspartate Amino Transferase 39 U/L (15-37); Bilirubin,Total 0.6 mg/dL (0.00-1.00); Blood Urea Nitrogen 11 mg/dL (7-18); Calcium 9.5 mg/dL (8.5-10.1); Carbon Dioxide 28 mmol/L (21-32); Chloride 105 mmol/L (98-108); Cholesterol 189 mg/dL (0-200); Estimated Glomerular Filt Rate > 60; Glucose 98 mg/dL (70-99); HDL Direct 82 mg/dL (40-60); LDL Cholesterol Calculated 91 mg/dL (<130); Osmolality Calculated 297 mOsm/kg (285-295); Potassium 4.1 mmol/L (3.5-5.1); Sodium 144 mmol/L (136-145); Thyroid Stimulating Hormone 0.94 uIU/mL (0.36-3.74); Total Protein 7.3 g/dL (6.4-8.2); Triglycerides 80 mg/dL (0-150)
== END 2021-09-08 11:00 | disposition home or self-care (01) ==
LOC: CHSLAB 11:01
PROVIDERS: PCP Internal Medicine; Visit Provider Internal Medicine
DX: E78.5 Hyperlipidemia, unspecified (principal); I10 Essential (primary) hypertension
CPT/HCPCS: 36415; 80053; 80061; 81003; 84443; 85025

== ENCOUNTER 2022-03-16 10:45 | Outpatient (CLI) | payer MEDICARE, SELFPAY ==
[2022-03-16 11:01] LABS: Basophils Absolute Auto 0.06 K/mm3 (0.00-0.10); Basophils Percent Auto 0.8 % (0.0-1.0); Eosinophils Absolute Auto 0.19 K/mm3 (0.02-0.50); Eosinophils Percent Auto 2.4 % (1.0-6.0); Hematocrit 40.9 % (35.0-42.0); Hemoglobin 13.8 g/dL (11.7-13.8); Immature Granulocyte Absolute 0.02 K/mm3 (0.00-0.00); Immature Granulocyte Percent A 0.3 % (0.0-0.0); Mean Corpuscular HGB Conc 33.7 g/dL (32.0-36.0); Mean Corpuscular Hemoglobin 35.9 pg (27.0-31.0); Mean Corpuscular Volume 106.5 fL (78.0-102.0); Mean Platelet Volume 10.3 fl (9.2-11.8); Monocytes Absolute Auto 0.51 K/mm3 (0.10-0.90); Monocytes Percent Auto 6.5 % (2.0-11.0); Neutrophils Absolute Auto 5.2 K/mm3 (1.7-7.2); Platelet Count Result 223 K/mm3 (150-420); Red Blood Count 3.84 M/mm3 (4.20-5.40); Red Cell Distribution Width 12.4 % (11.6-14.4); White Blood Count 7.8 K/mm3 (4.8-10.8)
[2022-03-16 11:02] LABS: Add Urine Microscopic? NO; Appearance Urine Clear (Clear); Bilirubin Urine Negative (Negative); Blood Urine Negative (Negative); Color Urine Light Yellow (Yellow); Glucose Urine UA Negative (Negative); Ketones Urine Negative (Negative); Leukocyte Esterase Ur Negative (Negative); Nitrate Urine Negative (Negative); Protein Urine Negative (Negative); Specific Grav Ur <= 1.005 (1.010-1.020); Urobilinogen Urine 0.2 mg/dL (0.2-1.0)
[2022-03-16 11:17] LABS: Alanine Aminotransferase 20 U/L (14-59); Albumin Level 3.8 g/dL (3.4-5.0); Alkaline Phosphatase 68 U/L (46-116); Anion Gap 5 mmol/L (8-16); Aspartate Amino Transferase 29 U/L (15-37); Bilirubin,Total 0.6 mg/dL (0.00-1.00); Blood Urea Nitrogen 14 mg/dL (7-18); Calcium 9.1 mg/dL (8.5-10.1); Carbon Dioxide 30 mmol/L (21-32); Chloride 103 mmol/L (98-108); Cholesterol 208 mg/dL (0-200); Estimated Glomerular Filt Rate 49; Glucose 90 mg/dL (70-99); HDL Direct 87 mg/dL (40-60); LDL Cholesterol Calculated 92 mg/dL (<130); Osmolality Calculated 286 mOsm/kg (285-295); Potassium 4.3 mmol/L (3.5-5.1); Sodium 138 mmol/L (136-145); Total Protein 7.6 g/dL (6.4-8.2); Triglycerides 147 mg/dL (0-150)
== END 2022-03-16 10:46 | disposition home or self-care (01) ==
LOC: CHSLAB 10:49
PROVIDERS: PCP Internal Medicine; Visit Provider Internal Medicine
DX: E87.5 Hyperkalemia (principal); I10 Essential (primary) hypertension
CPT/HCPCS: 36415; 80053; 80061; 81003; 85025

== ENCOUNTER 2022-04-21 11:58 | Outpatient (CLI) | payer MEDICARE, SELFPAY ==
--- NOTE | ~2022-04-21 | MM_ITS ---
EXAMINATION: MM screening tj BI w cesia HISTORY: Screening TECHNIQUE: Craniocaudal and mediolateral oblique 3-D tomosynthesis images were obtained and synthetic 2-D images were generated. CAD analysis was submitted and interpreted. COMPARISON: Comparison to multiple prior studies sequentially, with oldest reviewed study dated 11/2014. BREAST PARENCHYMAL COMPOSITION: The breasts are heterogeneously dense, which may obscure small masses . FINDINGS: There is no evidence of suspicious mass, calcification, or architectural distortion to sugg est malignancy in either breast. There has been no suspicious interval change. IMPRESSION: 1. No mammographic evidence of malignancy. 2. Recommend routine screening mammography in one year. BI-RADS Category 1: Negative Reviewed, dictated and finalized at location A.
== END 2022-04-21 11:59 | disposition home or self-care (01) ==
LOC: CHSIMG 12:00
PROVIDERS: PCP Internal Medicine; Visit Provider Internal Medicine
DX: Z12.31 Encounter for screening mammogram for malignant neoplasm of breast (principal)
CPT/HCPCS: 77063; 77067

== ENCOUNTER 2022-10-08 07:22 | Outpatient (CLI) | payer MEDICARE, SELFPAY ==
[2022-10-08 07:36] LABS: Basophils Absolute Auto 0.05 K/mm3 (0.00-0.10); Basophils Percent Auto 0.9 % (0.0-1.0); Eosinophils Absolute Auto 0.53 K/mm3 (0.02-0.50); Eosinophils Percent Auto 9.4 % (1.0-6.0); Hemoglobin 12.9 g/dL (11.7-13.8); Immature Granulocyte Absolute 0.01 K/mm3 (0.00-0.00); Immature Granulocyte Percent A 0.2 % (0.0-0.0); Lymphocytes Absolute Auto 2.12 K/mm3 (1.10-4.50); Lymphocytes Percent Auto 37.8 % (18.0-42.0); Mean Corpuscular HGB Conc 33.9 g/dL (32.0-36.0); Mean Corpuscular Hemoglobin 35.2 pg (27.0-31.0); Mean Corpuscular Volume 103.8 fL (78.0-102.0); Mean Platelet Volume 10.6 fl (9.2-11.8); Monocytes Absolute Auto 0.37 K/mm3 (0.10-0.90); Monocytes Percent Auto 6.6 % (2.0-11.0); Neutrophils Absolute Auto 2.5 K/mm3 (1.7-7.2); Neutrophils Percent Auto 45.1 % (50.0-70.0); Platelet Count Result 196 K/mm3 (150-420); Red Blood Count 3.66 M/mm3 (4.20-5.40); Red Cell Distribution Width 11.7 % (11.6-14.4); White Blood Count 5.6 K/mm3 (4.8-10.8)
[2022-10-08 08:10] LABS: Alanine Aminotransferase 18 U/L (14-59); Albumin Level 3.6 g/dL (3.4-5.0); Alkaline Phosphatase 62 U/L (46-116); Anion Gap 9 mmol/L (8-16); Aspartate Amino Transferase 31 U/L (15-37); Bilirubin,Total 0.7 mg/dL (0.00-1.00); Blood Urea Nitrogen 15 mg/dL (7-18); Calcium 8.7 mg/dL (8.5-10.1); Carbon Dioxide 29 mmol/L (21-32); Chloride 104 mmol/L (98-108); Cholesterol 205 mg/dL (0-200); Estimated Glomerular Filt Rate 58; Glucose 104 mg/dL (70-99); HDL Direct 81 mg/dL (40-60); LDL Cholesterol Calculated 107 mg/dL (<130); Osmolality Calculated 294 mOsm/kg (285-295); Sodium 142 mmol/L (136-145); Total Protein 6.9 g/dL (6.4-8.2); Triglycerides 84 mg/dL (0-150)
== END 2022-10-08 07:23 | disposition home or self-care (01) ==
LOC: CHSLAB 07:24
PROVIDERS: PCP Internal Medicine; Visit Provider Internal Medicine
DX: I10 Essential (primary) hypertension (principal); E78.5 Hyperlipidemia, unspecified
CPT/HCPCS: 36415; 80053; 80061; 85025

== ENCOUNTER 2022-11-14 10:51 | Outpatient (CLI) | payer MEDICARE, OTHER, SELFPAY ==
--- NOTE | ~2022-11-14 | XR_ITS ---
Clinical Indication: Chest pain PA and lateral views of the chest: Comparison: 03/27/2012 Findings: The lungs are clear, without evidence of focal consolidation or pleural effusion. Cardiome diastinal silhouette is within normal limits. Bones and soft tissues are unremarkable. Impression: Normal chest. Reviewed, dictated and finalized at location . EMS MECHANIC Impression: Normal chest.
--- NOTE | ~2022-11-14 | CT_ITS ---
EXAMINATION: CTA chest PE protocol DATE: 11/14/2022 12:36 INDICATION: Chest pain TECHNIQUE: Computed tomography angiography (CTA) of the chest was performed with 100 mL Omnipaque-350 intravenous contrast timed to evaluate the pulmonary arteries. Coronal maximum intensity projection 3D-reconstructions were created by the technologist. The dose-length product (DLP) was 189.07 mGy-cm. Automated exposure control and iterative reconstruction technique were employed. COMPARISON: 12/16/2020 FINDINGS: The pulmonary arteries are well-opacified. No pulmonary embolism is identified. Respiratory motion artifact limits evaluation for subsegmental emboli in the lower lobes. There is mild dependen t atelectasis. No pleural effusion or pneumothorax. There is a 4.7 cm fusiform aneurysm of the ascend ing aorta measured at the level of the main pulmonary artery. No pathologically enlarged thoracic lym ph nodes are identified. The heart size is normal. Calcified coronary artery atherosclerosis is noted . There is mild thoracic spondylosis. IMPRESSION: 1. No pulmonary embolus identified, sensitivity in subsegmental branches of the lower lobes limited b y respiratory motion artifact. No acute cardiopulmonary abnormality identified 2. Stable fusiform aneurysm of the ascending aorta Reviewed, dictated and finalized at location B. DEVELOPER IMPRESSION: 1. No pulmonary embolus identified, sensitivity in subsegmental branches of the lower lobes limited by respiratory motion artifact. No acute cardiopulmonary a bnormality identified 2. Stable fusiform aneurysm of the ascending aorta
--- NOTE | ~2022-11-14 | US_ITS ---
Limited Abdominal Sonogram: Real-time sonographic imaging of the right upper quadrant was performed. Clinical History: Abdominal pain Findings: The liver appears echogenic, with no evidence of mass lesion or bile duct dilatation. Main portal vein demonstrates normal direction of flow. The gallbladder is well distended, with polypoid masslike intraluminal lesion measuring 1.0 x 0.7 cm. Gallbladder wall is borderline thickened to 4 mm . The common bile duct measures 7 mm. The visualized pancreas, aorta, and IVC are unremarkable. Impression: 1.0 x 0.7 cm masslike intraluminal gallbladder lesion. This is probably most likely tumefactive sludg e adherent sludge. Gallbladder carcinoma cannot be completely excluded, though statistically this is less likely. Consider follow-up exam or additional workup as indicated. Diffuse fatty infiltration of the liver. Reviewed, dictated and finalized at location M. BUCKER Impression: 1.0 x 0.7 cm masslike intraluminal gallbladder lesion. This is probably most li mike tumefactive sludge adherent sludge. Gallbladder carcinoma cannot be comple tely excluded, though statistically this is less likely. Consider follow-up exa m or additional workup as indicated. Diffuse fatty infiltration of the liver.
--- NOTE | ~2022-11-14 | US_ITS ---
Ultrasound of the Abdominal Aorta INDICATION: Abdominal pain, aortic aneurysm TECHNIQUE: Grayscale, color Doppler, and pulsed Doppler images of the aorta and common iliac arteries were obtained. COMPARISON: None. FINDINGS: Maximum vascular dimensions are as follows: Proximal aorta: 1.9 cm Mid aorta: 1.7 cm Distal aorta: 2.0 cm Right common iliac artery: 1.1 cm Left common iliac artery: 1.2 cm There is no evidence of abdominal aortic aneurysm. IMPRESSION: No abdominal aortic aneurysm. Reviewed, dictated and finalized at location M. LLMENT MANAGEMENT DIRECTOR
[2022-11-14 11:07] LABS: Basophils Absolute Auto 0.03 K/mm3 (0.00-0.10); Basophils Percent Auto 0.4 % (0.0-1.0); Eosinophils Absolute Auto 0.14 K/mm3 (0.02-0.50); Eosinophils Percent Auto 1.8 % (1.0-6.0); Hemoglobin 13.7 g/dL (11.7-13.8); Immature Granulocyte Absolute 0.03 K/mm3 (0.00-0.00); Immature Granulocyte Percent A 0.4 % (0.0-0.0); Lymphocytes Absolute Auto 1.29 K/mm3 (1.10-4.50); Lymphocytes Percent Auto 16.3 % (18.0-42.0); Mean Corpuscular HGB Conc 33.4 g/dL (32.0-36.0); Mean Corpuscular Hemoglobin 34.5 pg (27.0-31.0); Mean Corpuscular Volume 103.3 fL (78.0-102.0); Mean Platelet Volume 10.6 fl (9.2-11.8); Monocytes Absolute Auto 0.49 K/mm3 (0.10-0.90); Monocytes Percent Auto 6.2 % (2.0-11.0); Neutrophils Percent Auto 74.9 % (50.0-70.0); Platelet Count Result 169 K/mm3 (150-420); Red Blood Count 3.97 M/mm3 (4.20-5.40); White Blood Count 7.9 K/mm3 (4.8-10.8)
[2022-11-14 11:39] LABS: D Dimer 0.87 mg/L (0.19-0.50)
[2022-11-14 11:48] LABS: Alanine Aminotransferase 100 U/L (14-59); Albumin Level 3.5 g/dL (3.4-5.0); Alkaline Phosphatase 168 U/L (46-116); Amylase 23 U/L (25-115); Anion Gap 9 mmol/L (8-16); Aspartate Amino Transferase 181 U/L (15-37); Bilirubin,Total 3.2 mg/dL (0.00-1.00); Blood Urea Nitrogen 12 mg/dL (7-18); CRP 2.8 mg/dL (0.0-0.9); Calcium 8.9 mg/dL (8.5-10.1); Carbon Dioxide 29 mmol/L (21-32); Chloride 98 mmol/L (98-108); Creatine Kinase 51 U/L (26-192); Estimated Glomerular Filt Rate > 60; Glucose 103 mg/dL (70-99); Lipase 42 U/L (16-77); Osmolality Calculated 281 mOsm/kg (285-295); Potassium 3.2 mmol/L (3.5-5.1); Sodium 136 mmol/L (136-145); Total Protein 7.5 g/dL (6.4-8.2); Troponin I 10.4 ng/L (0.00-60.4)
== END 2022-11-14 10:52 | disposition home or self-care (01) ==
PROVIDERS: PCP Internal Medicine; Visit Provider Internal Medicine
DX: R10.9 Unspecified abdominal pain (principal); R07.9 Chest pain, unspecified; K76.0 Fatty (change of) liver, not elsewhere classified; K82.9 Disease of gallbladder, unspecified; I71.21 Aneurysm of the ascending aorta, without rupture
CPT/HCPCS: 36415; 71046; 71275; 76705; 76775; 80053; 82150; 82550; 82553; 83690; 84484; 85025; 85380; 86140; Q9967

== ENCOUNTER 2022-12-28 12:19 | Outpatient (CLI) | payer MEDICARE, SELFPAY ==
[2022-12-28 12:32] LABS: Basophils Absolute Auto 0.06 K/mm3 (0.00-0.10); Basophils Percent Auto 0.8 % (0.0-1.0); Eosinophils Absolute Auto 0.21 K/mm3 (0.02-0.50); Eosinophils Percent Auto 2.9 % (1.0-6.0); Hematocrit 38.4 % (35.0-42.0); Immature Granulocyte Absolute 0.01 K/mm3 (0.00-0.00); Immature Granulocyte Percent A 0.1 % (0.0-0.0); Lymphocytes Absolute Auto 1.94 K/mm3 (1.10-4.50); Lymphocytes Percent Auto 26.9 % (18.0-42.0); Mean Corpuscular HGB Conc 33.9 g/dL (32.0-36.0); Mean Corpuscular Hemoglobin 34.4 pg (27.0-31.0); Mean Corpuscular Volume 101.6 fL (78.0-102.0); Mean Platelet Volume 10.2 fl (9.2-11.8); Monocytes Absolute Auto 0.36 K/mm3 (0.10-0.90); Neutrophils Absolute Auto 4.6 K/mm3 (1.7-7.2); Neutrophils Percent Auto 64.3 % (50.0-70.0); Platelet Count Result 216 K/mm3 (150-420); Red Blood Count 3.78 M/mm3 (4.20-5.40); Red Cell Distribution Width 12.3 % (11.6-14.4); White Blood Count 7.2 K/mm3 (4.8-10.8)
[2022-12-28 13:21] LABS: Alanine Aminotransferase 25 U/L (14-59); Albumin Level 3.9 g/dL (3.4-5.0); Alkaline Phosphatase 68 U/L (46-116); Anion Gap 11 mmol/L (8-16); Aspartate Amino Transferase 41 U/L (15-37); Bilirubin,Total 0.8 mg/dL (0.00-1.00); Blood Urea Nitrogen 12 mg/dL (7-18); Calcium 9.2 mg/dL (8.5-10.1); Carbon Dioxide 29 mmol/L (21-32); Chloride 105 mmol/L (98-108); Cholesterol 204 mg/dL (0-200); Estimated Glomerular Filt Rate > 60; Glucose 80 mg/dL (70-99); HDL Direct 80 mg/dL (40-60); LDL Cholesterol Calculated 112 mg/dL (<130); Osmolality Calculated 298 mOsm/kg (285-295); Potassium 3.9 mmol/L (3.5-5.1); Sodium 145 mmol/L (136-145); Total Protein 7.4 g/dL (6.4-8.2); Triglycerides 60 mg/dL (0-150)
== END 2022-12-28 12:20 | disposition home or self-care (01) ==
LOC: CHSLAB 12:20
PROVIDERS: PCP Internal Medicine; Visit Provider Internal Medicine
DX: E78.5 Hyperlipidemia, unspecified (principal); I10 Essential (primary) hypertension; R79.89 Other specified abnormal findings of blood chemistry
CPT/HCPCS: 36415; 80053; 80061; 85025

== ENCOUNTER 2023-05-11 12:46 | Outpatient (CLI) | payer MEDICARE, OTHER, SELFPAY ==
--- NOTE | ~2023-05-11 | MM_ITS ---
EXAMINATION: MM screening tj BI w cesia HISTORY: Screening mammogram, family history of breast cancer in her mother. TECHNIQUE: Craniocaudal and mediolateral oblique 3-D tomosynthesis images were obtained and synthetic 2-D images were generated. CAD analysis was submitted and interpreted. COMPARISON: 04/21/2022, 04/19/2021, 04/14/2020 BREAST PARENCHYMAL COMPOSITION: There are scattered areas of fibroglandular density. FINDINGS: No suspicious mass, calcification, or architectural distortion are identified in either tila ast to suggest malignancy. There has been no suspicious interval change. IMPRESSION: 1. No mammographic evidence of malignancy. 2. Recommend routine screening mammography in one year. BI-RADS Category 1: Negative Reviewed, dictated and finalized at location A.
== END 2023-05-11 12:47 | disposition home or self-care (01) ==
LOC: CHSIMG 12:49
PROVIDERS: PCP Internal Medicine; Visit Provider Internal Medicine
DX: Z12.31 Encounter for screening mammogram for malignant neoplasm of breast (principal)
CPT/HCPCS: 77063; 77067

== ENCOUNTER 2023-06-12 14:32 | Outpatient (CLI) | payer MEDICARE, OTHER, SELFPAY ==
--- NOTE | ~2023-06-12 | XR_ITS ---
EXAMINATION: XR chest 2V 06/12/2023 15:35 INDICATION: Syncope. Hypertension. Hyperlipidemia. PROCEDURE: 2 view chest COMPARISON: Comparison to multiple prior studies sequentially, with oldest reviewed study dated 08/02. FINDINGS: The lungs are clear. The cardiomediastinal silhouette is within normal limits. There are no pleural effusions. There is no pneumothorax suspected. There is levoscoliosis of the thoracolumb ar spine. IMPRESSION: 1: NO ACUTE CARDIOPULMONARY DISEASE. Reviewed, dictated and finalized at location B.
--- NOTE | 2023-06-12 15:03 | ECG_ITS ---
Measurements Intervals [place] Rate: 55 P: 67 W[place]: 165 QRS: 74 QRSD: 82 T: 70 QT: 440 QTc: 423 Interpretive Statements SINUS BRADYCARDIA DELAYED PRECORDIAL R/S TRANSITION BORDERLINE ECG NO PREVIOUS ECG AVAILABLE FOR COMPARISON Electronically Signed On 06-12-2023 15:37:45 CDT by Gavino Michel D.O.
[2023-06-12 15:05] LABS: Basophils Absolute Auto 0.05 K/mm3 (0.00-0.10); Basophils Percent Auto 0.6 % (0.0-1.0); Eosinophils Absolute Auto 0.34 K/mm3 (0.02-0.50); Eosinophils Percent Auto 4.3 % (1.0-6.0); Hematocrit 38.7 % (35.0-42.0); Hemoglobin 12.9 g/dL (11.7-13.8); Immature Granulocyte Absolute 0.02 K/mm3 (0.00-0.00); Immature Granulocyte Percent A 0.3 % (0.0-0.0); Lymphocytes Percent Auto 29.3 % (18.0-42.0); Mean Corpuscular HGB Conc 33.3 g/dL (32.0-36.0); Mean Corpuscular Volume 102.1 fL (78.0-102.0); Mean Platelet Volume 10.6 fl (9.2-11.8); Monocytes Absolute Auto 0.42 K/mm3 (0.10-0.90); Monocytes Percent Auto 5.3 % (2.0-11.0); Neutrophils Absolute Auto 4.7 K/mm3 (1.7-7.2); Neutrophils Percent Auto 60.2 % (50.0-70.0); Platelet Count Result 175 K/mm3 (150-420); Red Blood Count 3.79 M/mm3 (4.20-5.40); Red Cell Distribution Width 12.3 % (11.6-14.4); White Blood Count 7.9 K/mm3 (4.8-10.8)
[2023-06-12 15:06] LABS: Appearance Urine Clear (Clear); Bilirubin Urine Negative (Negative); Blood Urine Negative (Negative); Color Urine Light Yellow (Yellow); Glucose Urine UA Negative (Negative); Ketones Urine Negative (Negative); Leukocyte Esterase Ur Negative LEU/UL (Negative); Nitrate Urine Negative (Negative); Protein Urine Negative (Negative); Urobilinogen Urine 0.2 mg/dL (0.2-1.0); pH Urine 6.5 (5.0-8.0)
[2023-06-12 15:09] LABS: Add Urine Microscopic? NO
[2023-06-12 15:23] LABS: D Dimer 0.37 mg/L (0.19-0.50)
[2023-06-12 15:29] LABS: Alanine Aminotransferase 16 U/L (14-59); Albumin Level 3.7 g/dL (3.4-5.0); Alkaline Phosphatase 69 U/L (46-116); Anion Gap 8 mmol/L (8-16); Aspartate Amino Transferase 26 U/L (15-37); Bilirubin,Total 0.6 mg/dL (0.00-1.00); Blood Urea Nitrogen 14 mg/dL (7-18); Calcium 8.9 mg/dL (8.5-10.1); Carbon Dioxide 29 mmol/L (21-32); Chloride 105 mmol/L (98-108); Cholesterol 198 mg/dL (0-200); Estimated Glomerular Filt Rate 57; Glucose 84 mg/dL (70-99); HDL Direct 75 mg/dL (40-60); LDL Cholesterol Calculated 105 mg/dL (<130); NT Pro B Type Natriuretic Pept 796 pg/mL (0-450); Osmolality Calculated 293 mOsm/kg (285-295); Phosphorus 3.6 mg/dL (2.6-4.7); Potassium 3.5 mmol/L (3.5-5.1); Sodium 142 mmol/L (136-145); Total Protein 7.6 g/dL (6.4-8.2); Triglycerides 88 mg/dL (0-150)
== END 2023-06-12 14:33 | disposition home or self-care (01) ==
LOC: CHSLAB 14:34
PROVIDERS: PCP Internal Medicine; Visit Provider Internal Medicine
DX: R55 Syncope and collapse (principal); I10 Essential (primary) hypertension; E78.5 Hyperlipidemia, unspecified; R06.00 Dyspnea, unspecified; R00.1 Bradycardia, unspecified
CPT/HCPCS: 36415; 71046; 80053; 80061; 81003; 83735; 83880; 84100; 85025; 85380; 93005

== ENCOUNTER 2023-06-27 09:55 | Outpatient (CLI) | payer MEDICARE, SELFPAY ==
[2023-06-27 11:15] LABS: Alanine Aminotransferase 28 U/L (14-59); Alkaline Phosphatase 71 U/L (46-116); Anion Gap 9 mmol/L (8-16); Aspartate Amino Transferase 35 U/L (15-37); Bilirubin,Total 0.8 mg/dL (0.00-1.00); Blood Urea Nitrogen 16 mg/dL (7-18); Carbon Dioxide 27 mmol/L (21-32); Chloride 102 mmol/L (98-108); Estimated Glomerular Filt Rate > 60; Glucose 91 mg/dL (70-99); Magnesium 1.9 mg/dL (1.8-2.4); NT Pro B Type Natriuretic Pept 240 pg/mL (0-450); Osmolality Calculated 287 mOsm/kg (285-295); Potassium 4.1 mmol/L (3.5-5.1); Sodium 138 mmol/L (136-145); Total Protein 7.3 g/dL (6.4-8.2)
== END 2023-06-27 09:56 | disposition home or self-care (01) ==
LOC: CHSLAB 09:59
PROVIDERS: PCP Internal Medicine; Visit Provider Internal Medicine
DX: E61.2 Magnesium deficiency (principal); I10 Essential (primary) hypertension; R55 Syncope and collapse; R06.00 Dyspnea, unspecified
CPT/HCPCS: 36415; 80053; 83735; 83880

== ENCOUNTER 2024-01-10 11:24 | Outpatient (CLI) | payer MEDICARE, SELFPAY ==
[2024-01-10 11:52] LABS: Basophils Absolute Auto 0.04 K/mm3 (0.00-0.10); Basophils Percent Auto 0.5 % (0.0-1.0); Eosinophils Absolute Auto 0.21 K/mm3 (0.02-0.50); Eosinophils Percent Auto 2.9 % (1.0-6.0); Hematocrit 39.5 % (35.0-42.0); Hemoglobin 12.8 g/dL (11.7-13.8); Immature Granulocyte Absolute 0.02 K/mm3 (0.00-0.00); Immature Granulocyte Percent A 0.3 % (0.0-0.0); Lymphocytes Absolute Auto 1.84 K/mm3 (1.10-4.50); Mean Corpuscular HGB Conc 32.4 g/dL (32-36); Mean Corpuscular Hemoglobin 33.4 pg (27.0-31.0); Mean Corpuscular Volume 103.1 fL (78.0-102.0); Mean Platelet Volume 10.1 fl (9.2-11.8); Monocytes Absolute Auto 0.38 K/mm3 (0.10-0.90); Monocytes Percent Auto 5.2 % (2.0-11.0); Neutrophils Absolute Auto 4.87 K/mm3 (1.70-7.20); Neutrophils Percent Auto 66.1 % (50.0-70.0); Platelet Count Result 182 K/mm3 (150-420); Red Blood Count 3.83 M/mm3 (4.20-5.40); Red Cell Distribution Width 12.3 % (11.6-14.4); White Blood Count 7.4 K/mm3 (4.8-10.8)
[2024-01-10 11:54] LABS: Appearance Urine Clear (Clear); Bilirubin Urine Negative (Negative); Blood Urine Negative (Negative); Color Urine Light Yellow (Yellow); Glucose Urine UA Negative (Negative); Ketones Urine Negative (Negative); Leukocyte Esterase Ur Negative (Negative); Nitrate Urine Negative (Negative); Protein Urine Negative (Negative); Specific Grav Ur <= 1.005 (1.010-1.020); Urobilinogen Urine 0.2 mg/dL (0.2-1.0)
[2024-01-10 12:05] LABS: Add Urine Microscopic? NO
[2024-01-10 15:23] LABS: Alanine Aminotransferase 18 U/L (14-59); Albumin Level 3.9 g/dL (3.4-5.0); Alkaline Phosphatase 83 U/L (46-116); Anion Gap 11 mmol/L (4-12); Aspartate Amino Transferase 29 U/L (15-37); Bilirubin,Total 0.7 mg/dL (0.00-1.00); Blood Urea Nitrogen 13 mg/dL (7-18); Calcium 9.4 mg/dL (8.5-10.1); Carbon Dioxide 26 mmol/L (21-32); Chloride 103 mmol/L (98-108); Cholesterol 209 mg/dL (0-200); Estimated Glomerular Filt Rate > 60; Glucose 78 mg/dL (70-99); HDL Direct 88 mg/dL (40-60); LDL Cholesterol Calculated 99 mg/dL (<130); Osmolality Calculated 289 mOsm/kg (285-295); Potassium 3.8 mmol/L (3.5-5.1); Sodium 140 mmol/L (136-145); Thyroid Stimulating Hormone 1.74 uIU/mL (0.36-3.74); Total Protein 7.2 g/dL (6.4-8.2); Triglycerides 110 mg/dL (0-150)
== END 2024-01-10 11:25 | disposition home or self-care (01) ==
LOC: CHSLAB 11:26
PROVIDERS: PCP Internal Medicine; Visit Provider Internal Medicine
DX: I10 Essential (primary) hypertension (principal); E78.5 Hyperlipidemia, unspecified
CPT/HCPCS: 36415; 80053; 80061; 81003; 84443; 85025

== ENCOUNTER 2024-04-17 10:41 | Outpatient (CLI) | payer MEDICARE, OTHER, SELFPAY ==
--- NOTE | ~2024-04-17 | DEXA_ITS ---
Bone Density Report Name: ARGENTINA DELACRUZ Age: 78 Sex: Female Ethnicity: White Date of : 1945 Indication: postmenopausal; screening for osteoporosis; height loss; hysterectomy; Referring Provider: Jovanni Villanueva Study: Bone densitometry was performed. Exam Date: April 17, 2024 Accession number: [id number] Bone Density: Region BMD T-score Z-score Classification AP Spine(L1-L4) 1.263 2.0 4.4 Normal Femoral Neck (Left) 0.779 -0.6 1.5 Normal Total Hip (Left) 0.934 -0.1 1.8 Normal Femoral Neck (Right) 0.797 -0.5 1.7 Normal Total Hip (Right) 0.967 0.2 2.1 Normal Femoral Neck Mean 0.788 -0.5 1.6 Normal Total Hip Mean 0.950 0.1 1.9 Normal World Health Organization criteria for BMD impression classify patients as: Normal (T-score at or above -1.0), Osteopenia (T-score between -1.0 and -2.5), or Osteoporosis (T-score at or below -2.5). 10-year Fracture Risk: FRAX not reported because: All T-scores for Spine Total, Hip Total, Femoral Neck at or above -1.0 Clinical Information Provided by Patient: Smokes Has used the following medications: Vitamin D Has the following medical conditions: Hysterectomy Patient maximum height was 63 Menopause Age: 57 No regular weight bearing exercise Drinks caffeinated beverages Onset of menses at age 14 Number of children 0 Impression: The patient has normal bone mass. The patient has risk factors, including: smoking. Discussion: BONE DENSITY IS ABOVE THE MINIMUM DESIRABLE LEVEL AT ALL SKELETAL SITES TESTED. This patient?s bone mineral density is above the minimum desirable level (T-score -1.0 or better) at all sites measured. The patient should follow a healthful lifestyle (good nutrition with adequate calcium and vitamin D, and appropriate weight-bearing exercise). Follow-Up: Consider repeating this study in 5 years or sooner if there is some new clinical indication. Reported by: Dr. Akira Azevedo on 04/17/2024 1:53:00 PM. Reviewed, dictated and finalized at location [facility]
--- NOTE | ~2024-04-17 | XR_ITS ---
Thoracic spine: Clinical Indication: Back pain AP and lateral views were performed. No fracture is seen. There is normal alignment of the vertebrae. There is mild degenerative change i n the thoracic spine. Paravertebral soft tissues appear normal. Impression: Mild degenerative disc change. Reviewed, dictated and finalized at location . Impression: Mild degenerative disc change.
--- NOTE | ~2024-04-17 | XR_ITS ---
Lumbosacral Spine: AP and lateral views Clinical History: Pain Findings: The normal lordotic curve is maintained. No fracture seen. There is 5 mm anterolisthesis of L3 over L4. There is 5 mm anterolisthesis of L4 over L5. There is severe facet arthropathy throughou t the lumbar spine. There is mild to moderate degenerative disc change throughout the lumbar spine. T he sacroiliac joints are normally outlined. Impression: Moderate to severe degenerative spondylosis, as above. 5 mm anterolisthesis of L3 over L4. 5 mm anterolisthesis of L4 over L5. Reviewed, dictated and finalized at location M. Impression: Moderate to severe degenerative spondylosis, as above. 5 mm anterolisthesis of L3 over L4. 5 mm anterolisthesis of L4 over L5.
== END 2024-04-17 10:42 | disposition home or self-care (01) ==
LOC: CHSIMG 10:43
PROVIDERS: PCP Internal Medicine; Visit Provider Internal Medicine
DX: M54.50 Low back pain, unspecified (principal); Z78.0 Asymptomatic menopausal state; M43.06 Spondylolysis, lumbar region
CPT/HCPCS: 72072; 72100; 77080

== ENCOUNTER 2024-05-07 01:27 | Day surgery (SDC) | payer MEDICARE, OTHER, SELFPAY ==
[2024-04-15 14:21] VITALS: BMI 22.6
[2024-05-07 10:24] VITALS: BP 150/84; PULSE 60; RESP 18; TEMP 36.5; O2SAT 99
[2024-05-07] MEDS: LACTATED RINGERS 1,000 ML 150 ML IV CONT (10:39)
--- NOTE | 2024-05-07 11:09 | P.PNAN_ITS ---
Anes - Initial Pre Proc Eval Procedure: Operation Date: 05/07/24 11:30 Proposed Procedures p Colonoscopy - Robbie Linda MD Date/Time: 05/07/24 11:09 Surgeon: Robbie Linda MD Pre Op Diagnosis: Personal hx. colon polyps Patient Data Age: 78 Gender: F Height: 1.57 m Weight: 53.4 kg Last Vital Signs Temp 36.5 C 05/07/24 10:24 Pulse 60 05/07/24 10:24 Resp 18 05/07/24 10:24 BP 150/84 H 05/07/24 10:24 Pulse Ox 99 05/07/24 10:24 O2 Del Method Room Air 05/07/24 10:24 Allergies Allergy/AdvReac Type Severity Reaction Status Date / Time ampicillin AdvReac Unknown c-diff Verified 05/07/24 10:23 Home Medications Medication Instructions Recorded Confirmed Type aspirin 81 mg tablet,delayed 81 mg PO DAILY 11/12/19 05/07/24 History release (Aspir-) atenolol 25 mg tablet 50 mg PO QAM 11/12/19 05/07/24 History lorazepam 0.5 mg tablet 0.5 mg PO DIRECTED 11/12/19 05/07/24 History pantoprazole 40 mg tablet,delayed 40 mg PO DAILY 11/12/19 05/07/24 History release simvastatin 10 mg tablet 10 mg PO DAILY 11/12/19 05/07/24 History telmisartan 20 mg tablet 80 mg PO QAM 11/12/19 05/07/24 History Patient hx anesthesia problems: none Family hx anesthesia problems: none Results Review: All pre-operative results and documents have been reviewed as part of the pre-op erative evaluation. [facility] Past Medical History Medical History (Updated 05/07/24 @ 11:10 by Brice Moran MD) Adenomatous colon polyp Anxiety Aortic aneurysm ascending aorta 5.0 cm 11/2020 Chronic pain Depression Epigastric pain GERD (gastroesophageal reflux disease) Hyperlipidemia Hypertension Weight loss Family History Family History (Updated 10/11/16 @ 11:23 by DOCTOR UNKNOWN) Mother Hypertension Family history of arthritis Social History Social History Smoking packs per day: 0.5 Smoking cigarettes per day: 10.0 Years smoked: 10 Smoking pack-years: 5.00 Smoking status: Current every day smoker Tobacco type: cigarettes Alcohol intake: current Drinks per week: 3 Alcohol use details: OCCASIONALLY Substance use: never Substance use type: does not use Living arrangements: with family Additional living arrangements comments: [facility] Gender identity (if verbalized by the patient): Female Spiritual care concerns: No Anes - Eval Final PreProcedure Day of Procedure 05/07/24 11:09 Patient weight: normal Heart: regular rate and rhythm Lungs: clear to auscultation Airway: Mallampati scale class II Neurological: alert and oriented Last oral intake: >/= 8 hours ASA classification: III Emergent: no Anesthetic plan: proceed Anesthesia type and monitoring: general and standard monitoring Results Review: All pre-operative results and documents have been reviewed as part of the pre- operative evaluation. Informed Consent: The patient's anesthetic plan and its attendant risks and benefits were discussed with the patient/family/POA. Questions were solicited and answers provided to the satisfaction of the patient/family/POA.
--- NOTE | 2024-05-07 11:09 | PM.HPGS ---
History of Present Illness History of Present Illness Consent: Risks, benefits, and alternatives have been discussed and questions answered. Patient agrees to proceed with procedure. Chief complaint: Personal hx. colon polyps Narrative: Pao Diaz is a 78 year old female with polyp, last colonoscopy 2020 Review of Systems Review of Systems: All systems reviewed & are unremarkable except as noted in HPI and below PMFSH Past Medical History Medical History (Updated 05/07/24 @ 11:10 by Brice Moran MD) Adenomatous colon polyp Anxiety Aortic aneurysm ascending aorta 5.0 cm 11/2020 Chronic pain Depression Epigastric pain GERD (gastroesophageal reflux disease) Hyperlipidemia Hypertension Weight loss Family History Family History (Updated 10/11/16 @ 11:23 by DOCTOR UNKNOWN) Mother Hypertension Family history of arthritis Social History Social History Smoking packs per day: 0.5 Smoking cigarettes per day: 10.0 Years smoked: 10 Smoking pack-years: 5.00 Smoking status: Current every day smoker Tobacco type: cigarettes Alcohol intake: current Drinks per week: 3 Alcohol use details: OCCASIONALLY Substance use: never Substance use type: does not use Living arrangements: with family Additional living arrangements comments: [facility] Gender identity (if verbalized by the patient): Female Spiritual care concerns: No Meds Home Medications and Allergies Home Medications Medication Instructions Recorded Confirmed Type aspirin 81 mg tablet,delayed 81 mg PO DAILY 11/12/19 05/07/24 History release (Aspir-) atenolol 25 mg tablet 50 mg PO QAM 11/12/19 05/07/24 History lorazepam 0.5 mg tablet 0.5 mg PO DIRECTED 11/12/19 05/07/24 History pantoprazole 40 mg tablet,delayed 40 mg PO DAILY 11/12/19 05/07/24 History release simvastatin 10 mg tablet 10 mg PO DAILY 11/12/19 05/07/24 History telmisartan 20 mg tablet 80 mg PO QAM 11/12/19 05/07/24 History Allergies Allergy/AdvReac Type Severity Reaction Status Date / Time ampicillin AdvReac Unknown c-diff Verified 05/07/24 10:23 Vital Signs Vital Signs - 24 hr 05/07/24 10:24 Temperature 97.7 F Pulse Rate 60 Respiratory Rate 18 Blood Pressure 150/84 H Pulse Oximetry 99 Oxygen Delivery Room Air Exam Const: General: comfortable and no acute distress HENMT: Face/Nose/Sinus: Normal nares present Eyes: General: appearance normal, both eyes and all related structures Neck: Neck: no JVD Resp: Auscultation: clear to auscultation bilaterally Cardio: Rate: regular rate Rhythm: regular rhythm GI: Inspection: non-distended GI Palp: Yes Soft to palpation Skin: General skin exam: normal color Neuro: General: gait normal Speech: normal speech Extrem: General: normal to inspection Psych: Mental Status: mental status grossly normal Assessment and Plan Assessment and plan (1) Adenomatous colon polyp: Code(s): D12.6 - Benign neoplasm of colon, unspecified Status: Acute Assessment and Plan: colonoscopy
[2024-05-07 11:32] VITALS: BP 71/48; PULSE 59; RESP 25; O2SAT 98
[2024-05-07 11:42] VITALS: BP 88/56; PULSE 54; RESP 18; O2SAT 98
[2024-05-07 11:52] VITALS: BP 101/66; PULSE 57; RESP 18; O2SAT 100
== END 2024-05-07 12:00 | disposition home or self-care (01) ==
PROVIDERS: PCP Internal Medicine; Visit Provider Internal Medicine Gastroenterology
PROC: 0DJD8ZZ Inspection of Lower Intestinal Tract, Via Natural or Artificial Opening Endoscopic (ICD-10-PCS; CPT 45378; principal; 2024-05-07 11:30)
DX: Z12.11 Encounter for screening for malignant neoplasm of colon (principal); K51.40 Inflammatory polyps of colon without complications; K64.8 Other hemorrhoids; I10 Essential (primary) hypertension; E78.5 Hyperlipidemia, unspecified; K21.9 Gastro-esophageal reflux disease without esophagitis; I71.21 Aneurysm of the ascending aorta, without rupture; F41.9 Anxiety disorder, unspecified; F32.A Depression, unspecified; F17.210 Nicotine dependence, cigarettes, uncomplicated; Z79.82 Long term (current) use of aspirin
CPT/HCPCS: 45380; 88305; J2704; J7120

== ENCOUNTER 2024-06-11 11:50 | Outpatient (CLI) | payer MEDICARE, OTHER, SELFPAY ==
--- NOTE | ~2024-06-11 | MM_ITS ---
EXAMINATION: MM screening tj BI w cesia HISTORY: Screening mammogram, family history of breast cancer in her mother. TECHNIQUE: Craniocaudal and mediolateral oblique 3-D tomosynthesis images were obtained and synthetic 2-D images were generated. CAD analysis was submitted and interpreted. COMPARISON: 05/11/2023, 04/21/2022, 04/19/2021, 04/14/2020 BREAST PARENCHYMAL COMPOSITION:Dense: The breasts are heterogeneously dense, which may obscure small masses. FINDINGS: No suspicious mass, calcification, or architectural distortion are identified in either tila ast to suggest malignancy. There has been no suspicious interval change. IMPRESSION: No mammographic evidence of malignancy. Recommend routine screening mammography in one year. BI-RADS Category 1: Negative Reviewed, dictated and finalized at location .
== END 2024-06-11 11:51 | disposition home or self-care (01) ==
LOC: CHSIMG 11:52
PROVIDERS: PCP Internal Medicine; Visit Provider Internal Medicine
DX: Z12.31 Encounter for screening mammogram for malignant neoplasm of breast (principal)
CPT/HCPCS: 77063; 77067

== ENCOUNTER 2024-07-10 11:43 | Outpatient (CLI) | payer MEDICARE, OTHER, SELFPAY ==
[2024-07-10 12:04] LABS: Hematocrit 39.2 % (35.0-42.0); Hemoglobin 13.2 g/dL (11.7-13.8); Mean Corpuscular HGB Conc 33.7 g/dL (32-36); Mean Corpuscular Hemoglobin 33.8 pg (27.0-31.0); Mean Corpuscular Volume 100.5 fL (78.0-102.0); Mean Platelet Volume 10.2 fl (9.2-11.8); Platelet Count Result 194 K/mm3 (150-420); Red Cell Distribution Width 12.4 % (11.6-14.4); White Blood Count 6.6 K/mm3 (4.8-10.8)
[2024-07-10 12:55] LABS: Alanine Aminotransferase 24 U/L (14-59); Albumin Level 3.7 g/dL (3.4-5.0); Alkaline Phosphatase 83 U/L (46-116); Anion Gap 9 mmol/L (4-12); Aspartate Amino Transferase 30 U/L (15-37); Bilirubin,Total 0.8 mg/dL (0.00-1.00); Blood Urea Nitrogen 11 mg/dL (7-18); Calcium 9.3 mg/dL (8.5-10.1); Carbon Dioxide 27 mmol/L (21-32); Chloride 102 mmol/L (98-108); Cholesterol 204 mg/dL (0-200); Estimated Glomerular Filt Rate 57; Glucose 115 mg/dL (70-99); HDL Direct 78 mg/dL (40-60); LDL Cholesterol Calculated 109 mg/dL (<130); Osmolality Calculated 286 mOsm/kg (285-295); Potassium 4.7 mmol/L (3.5-5.1); Sodium 138 mmol/L (136-145); Total Protein 7.2 g/dL (6.4-8.2); Triglycerides 83 mg/dL (0-150)
== END 2024-07-10 11:44 | disposition home or self-care (01) ==
LOC: CHSLAB 11:45
PROVIDERS: PCP Internal Medicine; Visit Provider Internal Medicine
DX: I10 Essential (primary) hypertension (principal); E78.5 Hyperlipidemia, unspecified
CPT/HCPCS: 36415; 80053; 80061; 85027

== ENCOUNTER 2024-08-08 09:51 | Outpatient (CLI) | payer MEDICARE, OTHER, SELFPAY ==
--- NOTE | ~2024-08-08 | MR_ITS ---
MRI of the lumbar spine Clinical History: Back pain Technique: Axial T2-weighted images, and sagittal T1-weighted, T2-weighted, and T2 fat-sat images wer e acquired. Findings: No acute fracture. There is 4 mm anterolisthesis of L3 over L4. There is 6 mm anterolisthes is of L4 over L5. No suspicious bone marrow signal abnormality seen. At L1-L2, there is moderate degenerative distended. There is mild diffuse disc bulge and moderate to advanced facet arthropathy. No central canal stenosis. There is mild to moderate bilateral neural for aminal narrowing. At L2-L3, there is no disc bulge or herniation. There is moderate facet arthropathy. No central canal stenosis. There is moderate left neural foraminal narrowing. Right neural foramen preserved. At L3-L4, there is advanced degenerative disc narrowing. Disc bulge and severe facet arthropathy cont ribute to severe spinal canal stenosis/thecal sac compression. There is severe left neural foraminal narrowing, and moderate right neural foraminal narrowing. At L4-L5, there is moderate degenerative disc narrowing. Disc bulge and severe facet arthropathy resu lt in severe spinal canal stenosis/thecal sac compression. There is severe bilateral neural foraminal compromise. At L5-S1, there is severe degenerative disc narrowing. There is diffuse disc bulge with severe facet arthropathy. No central canal stenosis. There is severe left neural foraminal narrowing, and mild to moderate right neural foraminal narrowing. Paravertebral soft tissues are unremarkable. Impression: Extensive, severe degenerative spondylosis, worst at L3-L4 and L4-L5. 6 mm anterolisthesis of L4 over L5. 4 mm anterolisthesis of L3 over L4. Reviewed, dictated and finalized at [facility]. AL MERCHANDISING MANAGER Impression: Extensive, severe degenerative spondylosis, worst at L3-L4 and L4-L5. 6 mm anterolisthesis of L4 over L5. 4 mm anterolisthesis of L3 over L4.
== END 2024-08-08 09:52 | disposition home or self-care (01) ==
LOC: CHSIMG 09:53
PROVIDERS: PCP Internal Medicine; Visit Provider Nurse Practitioner Family
DX: M54.50 Low back pain, unspecified (principal); M43.06 Spondylolysis, lumbar region
CPT/HCPCS: 72148

== ENCOUNTER 2025-01-22 11:02 | Outpatient (CLI) | payer MEDICARE, OTHER, SELFPAY ==
[2025-01-22 11:19] LABS: Add Urine Microscopic? NO; Appearance Urine Clear (Clear); Bilirubin Urine Negative (Negative); Blood Urine Negative (Negative); Color Urine Yellow (Yellow); Glucose Urine UA Negative (Negative); Hematocrit 39.9 % (35.0-42.0); Hemoglobin 13.3 g/dL (11.7-13.8); Ketones Urine Trace (Negative); Leukocyte Esterase Ur Negative (Negative); Mean Corpuscular HGB Conc 33.3 g/dL (32-36); Mean Corpuscular Hemoglobin 34.2 pg (27.0-31.0); Mean Corpuscular Volume 102.6 fL (78.0-102.0); Mean Platelet Volume 10.5 fl (9.2-11.8); Nitrate Urine Negative (Negative); Platelet Count Result 201 K/mm3 (150-420); Protein Urine Negative (Negative); Red Blood Count 3.89 M/mm3 (4.20-5.40); Red Cell Distribution Width 11.9 % (11.6-14.4); Urobilinogen Urine 0.2 mg/dL (0.2-1.0); White Blood Count 6.6 K/mm3 (4.8-10.8); pH Urine 6.5 (5.0-8.0)
[2025-01-22 12:06] LABS: Alanine Aminotransferase 16 U/L (14-59); Albumin Level 3.8 g/dL (3.4-5.0); Alkaline Phosphatase 80 U/L (46-116); Anion Gap 10 mmol/L (4-12); Aspartate Amino Transferase 26 U/L (15-37); Bilirubin,Total 0.7 mg/dL (0.00-1.00); Blood Urea Nitrogen 11 mg/dL (7-18); Calcium 8.7 mg/dL (8.5-10.1); Carbon Dioxide 29 mmol/L (21-32); Chloride 105 mmol/L (98-108); Cholesterol 196 mg/dL (0-200); Estimated Glomerular Filt Rate 53; Glucose 87 mg/dL (70-99); HDL Direct 85 mg/dL (40-60); LDL Cholesterol Calculated 90 mg/dL (<130); Osmolality Calculated 296 mOsm/kg (285-295); Potassium 3.9 mmol/L (3.5-5.1); Sodium 144 mmol/L (136-145); Thyroid Stimulating Hormone 1.82 uIU/mL (0.36-3.74); Total Protein 7.3 g/dL (6.4-8.2); Triglycerides 106 mg/dL (0-150)
--- OUTSIDE RECORDS SUMMARY | 2025-01-22 12:59 | XMS_ITS | Clinical Summary ---
Author Organization [facility] Address [address] [place] [address] Care Team Providers Care Pastry Sous Chef Name Role Phone Jovanni Villanueva MD Primary Care Provider [phone] Noman Bailey MD Unavailable Debra Chu NP Unavailable [phone] Allergies Active Allergy Reactions Criticality Noted Date Comments Amoxicillin Diarrhea 07/01/2021 Medications simvastatin 10 MG tablet Take 1 tablet (10 mg total) by mouth daily. 12/29/2020 Active LORazepam 0.5 MG tablet Take 1 tablet (0.5 mg total) by mouth. 11/26/2020 Active estradiol 0.5 MG tablet Take 1 tablet (0.5 mg total) by mouth daily. 12/14/2020 Active pantoprazole EC 40 MG tablet Take 1 tablet (40 mg total) by mouth daily. 12/29/2020 Active atenolol 25 MG tablet Take 2 tablets (50 mg total) by mouth daily. 12/14/2020 Active aspirin 81 MG chewable tablet Chew 1 tablet (81 mg total) by mouth daily. Active vitamin D2, ergocalciferol, 62156 UNITS capsule Take 1 capsule (50,000 Units total) by mouth daily. Active Telmisartan 80 MG Tab Take 80 mg by mouth daily. 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 ([facility]) Encounters Date Type Department Care Team Description 12/20/2024 [facility] [address] [place] [address] Noman Bailey MD Reschedule from Last 3 Months Family History Medical History Relation Comments Heart Disease Brother 1 Heart Disease Brother 2 Stroke Father peripheral vascular disease Father Cancer Mother BREAST No Known Problems Sister Relation Status Comments Brother 1 Alive Brother 2 Alive Father Mother Sister Alive Social History Tobacco Use Types Packs/Day Years Used Date Smoking Tobacco: Every Day Cigarettes Smokeless Tobacco: Never Alcohol Use Standard Drinks/Week Comments Yes 3.3 (1 standard drink = 0.6 oz p ure alcohol) Comments Unknown Sex and Gender Information Value Date Recorded Sex Assigned at Not on file Legal Sex Female 5:43 PM CDT Gender Identity Not on file Sexual Orientation Not on file Last Filed Vital Signs Vital Sign Reading Time Taken Comments Blood Pressure 136/78 03/08/2024 1:21 PM CDT Pulse 66 03/08/2024 1:21 PM CDT Temperature - - Respiratory Rate 16 03/08/2024 1:21 PM CDT Oxygen Saturation 94% 03/08/2024 1:21 PM CDT Inhaled Oxygen Concentration - - Weight 56.9 kg (125 lb 6.4 oz) 03/08/2024 1:21 P M CDT Height 160 cm (5' 3 ) 03/08/2024 1:21 PM CDT Body Mass Index 22.21 03/08/2024 1:21 PM CDT Plan of Treatment Upcoming Encounters Date Type Department Care Team (Late st Contact Info) Description 03/14/2025 9:20 AM CDT Appointment [facility] [address] [place] [address] Juancarlos Orellana MD [address], [address] [place], [place] [address] 03/14/2025 10:00 AM CDT Appointment [facility] Non Invasive Cardiology - [facility] [address] [place] [address] Juancarlos Orellana MD [address], [address] [place] [address] 03/14/2025 11:30 AM CDT Office Visit [facility] [address] [place] [address] Noman Bailey MD [address] [place] [address] Health Maintenance Due Date Last Done Comments ASCVD LDL 1945 ASCVD Statin 1945 Kidney Health Evaluation 1945 Hemoglobin A1C 1947 Lipid Panel 1947 Diabetes: Retinopathy Eye Exam 1965 Hepatitis C 1965 DTaP, Tdap and Td Vaccines ( 1 - Tdap) 1966 Annual Medicare Wellness Visit 2012 Dexa Scan (General) 2012 Pneumococcal Vaccine: 50+ Years (2 of 2 - PPSV23) 06/12/2020 04/17/2020, 08/24/2016 RSV Immunization or 60+ Years (1 - 1-dose 75+ series) 2022 COVID-19 Vaccine (3 - 2023-2 5 season) 2024 01/01/2021, 12/04/2020 Zoster Vaccines Completed 04/17/2020, 12/04/2019 Meningococcal B Vaccine Aged Out No l onger eligible based on patient's age to complete this topic Meningococcal Vaccine Aged Out No kris bernadette eligible based on patient's age to complete this topic RSV Immunizations Under 20 Months Aged Out No longer eligible b ased on patient's age to complete this topic Insurance MEDICARE [facility] Care Teams Pastry S[employer] Chef Relationship Specialty Start Date End Date Jovanni Villanueva MD [address] [place] [address] PCP - General INTERNAL MEDICINE 12/18/20 Noman Bailey MD [address] [place] [id number] Consulting Physician INTERVENTIONAL CARDIOLOGY 01/06/25 Debra Chu NP [address] [place] [address] [phone] Nurse Practitioner Nurse Practitioner Family 12/20/24
== END 2025-01-22 11:03 | disposition home or self-care (01) ==
LOC: CHSLAB 11:05
PROVIDERS: PCP Internal Medicine; Visit Provider Internal Medicine
DX: I10 Essential (primary) hypertension (principal); E78.5 Hyperlipidemia, unspecified
CPT/HCPCS: 36415; 80053; 80061; 81003; 84443; 85027

== ENCOUNTER 2025-03-29 07:46 | Outpatient (CLI) | payer MEDICARE, OTHER, SELFPAY ==
--- NOTE | ~2025-03-29 | MR_ITS ---
MRI of the lumbar spine Clinical History: Back pain radiating to lower extremities Technique: Axial T2-weighted images, and sagittal T1-weighted, T2-weighted, and T2 fat-sat images wer e acquired. COMPARISON: 08/08/2024 Findings: No acute fracture seen. Osseous alignment is unchanged from prior exam. Stable 5 mm anterol isthesis of L3 over L4. Stable 7 mm anterolisthesis of L4 over L5. No suspicious bone marrow signal a bnormality seen. At L1-L2, there is moderate degenerative disc narrowing. There is minimal disc bulge with moderate fa cet arthropathy. No central canal stenosis. There is probable mild bilateral neural foraminal narrowi ng. At L2-L3, there is moderate facet arthropathy. No significant disc bulge or herniation. No spinal can al stenosis. Possible minimal bilateral neural foraminal narrowing. L3-L4, there is advanced degenerative disc narrowing. Disc bulge/uncovering and severe facet arthropa thy result in severe spinal canal stenosis/thecal sac compression. There is moderate left neural fora ivon narrowing and minimal right neural foraminal narrowing. At L4-L5, there is moderate degenerative disc narrowing. Disc bulge/uncovering with severe facet arth ropathy result in severe spinal canal stenosis/thecal sac compression. There is moderate to severe le ft neural foraminal narrowing, and severe right neural foraminal narrowing. At L5-S1, there is advanced degenerative disc narrowing. There is diffuse disc bulge with severe face t arthropathy. There is minimal central canal stenosis. There is severe left neural foraminal narrowi ng, and moderate right neural foraminal narrowing. Paravertebral soft tissues are unremarkable. Impression: Severe degenerative spondylitic changes at L3-L4, L4-L5, L5-S1, as detailed above. 5 mm anterolisthesis of L3 over L4. 7 mm anterolisthesis of L4 over L5. Reviewed, dictated and finalized at location M. Impression: Severe degenerative spondylitic changes at L3-L4, L4-L5, L5-S1, as detailed abo ve. 5 mm anterolisthesis of L3 over L4. 7 mm anterolisthesis of L4 over L5.
== END 2025-03-29 07:47 | disposition home or self-care (01) ==
LOC: CHSIMG 07:49
PROVIDERS: PCP Internal Medicine; Visit Provider Nurse Practitioner Family
DX: M54.50 Low back pain, unspecified (principal); M43.06 Spondylolysis, lumbar region
CPT/HCPCS: 72148

== ENCOUNTER 2025-07-30 11:03 | Outpatient (CLI) | payer MEDICARE, SELFPAY ==
[2025-07-30 11:59] LABS: Alanine Aminotransferase 13 U/L (6-35); Albumin Level 4.3 g/dL (3.5-5.1); Alkaline Phosphatase 61 U/L (38-126); Anion Gap 9 mmol/L (4-12); Aspartate Amino Transferase 38 U/L (14-36); Bilirubin,Total 0.7 mg/dL (0.2-1.3); Blood Urea Nitrogen 16 mg/dL (7-17); Calcium 9.7 mg/dL (8.4-10.2); Carbon Dioxide 28 mmol/L (22-30); Chloride 106 mmol/L (98-107); Cholesterol 179 mg/dL (0-200); Estimated Glomerular Filt Rate > 60; Glucose 95 mg/dL (65-110); HDL Direct 78 mg/dL; Osmolality Calculated 297 mOsm/kg (285-295); Potassium 4.2 mmol/L (3.4-5.0); Sodium 143 mmol/L (137-145); Total Protein 7.9 g/dL (6.3-8.2); Triglycerides 161 mg/dL (<150)
== END 2025-07-30 11:04 | disposition home or self-care (01) ==
LOC: CHSLAB 11:04
PROVIDERS: PCP Internal Medicine; Visit Provider Internal Medicine
DX: I10 Essential (primary) hypertension (principal); E78.5 Hyperlipidemia, unspecified
CPT/HCPCS: 36415; 80053; 80061